=== PATIENT | female | born 1945 | race Caucasian/White ===

== ENCOUNTER 2017-05-22 09:54 | Observation (INO) ==
--- NOTE | 2017-05-22 10:26 | Emergency Department Note ---
Disposition Clinical Impression: Pre-syncope Pneumonia Qualifiers: Pneumonia type: due to unspecified organism Laterality: unspecified laterality Lung location: unspecified part of lung Qualified Code(s): J18.9 - Pneumonia, unspecified organism Disposition: Admitted As Inpatient Condition: Fair General Adult HPI - General Chief complaint: ED Syncope Stated complaint: medical assist/near syncope Time Seen by Provider: 05/22/17 09:56 Source: patient Limitations: no limitations Nursing Notes Reviewed: Yes Vital Signs Reviewed: Yes - History of Present Illness HPI Narrative: Patient was at the primary care physician office this morning and was called for medical cyst after she became diaphoretic and lightheaded and a did transport her here where blood sugar was 73. The patient does have diabetes. Did eat a sausage [place] morning at [employer] She denies any chest pain. The patient's symptoms are resolved. She has not had anything to eat or drink since the time of the episode. She denies any numbness or weakness of extremities, slurred speech, facial droop or confusion. She has had some dyspnea with exertion but is not short of breath now. Has been treated for upper respiratory infection with 2 rounds of antibiotics and also steroid medication Pain Scale: 0 - Related Data Home Medications Medication Instructions Recorded Confirmed Ascorbic Acid [Vitamin C] 1,000 mg PO DAILY 11/20/15 05/22/17 Aspirin Enteric Coated [Aspirin EC] 81 mg PO DAILY 11/20/15 05/22/17 Bee Pollen 1,000 mg PO BID 11/20/15 05/22/17 Calcium Carbonate/Vitamin D3 1 each PO BID 11/20/15 05/22/17 [Calcium 500-Vit D3 400 Tablet] Chromium Picolinate 200 mcg PO DAILY 11/20/15 05/22/17 Cinnamon Bark [Cinnamon] 500 mg PO DAILY 11/20/15 05/22/17 Insulin ASPART [Novolog Flexpen] 30 unit SQ TIDWM 11/20/15 05/22/17 Insulin Glargine,Hum.rec.anlog 42 unit SQ QAM 11/20/15 05/22/17 [Lantus Solostar] Insulin Glargine,Hum.rec.anlog 70 unit SQ HS 11/20/15 05/22/17 [Lantus Solostar] Lisinopril 20 mg PO HS 11/20/15 05/22/17 Lisinopril/Hydrochlorothiazide 1 tab PO QAM 11/20/15 05/22/17 [Lisinopril-Hctz 20-25 mg Tab] Multivitamin [Multi-Day Vitamins] 1 each PO DAILY 11/20/15 05/22/17 Niacin 500 mg PO DAILY 11/20/15 05/22/17 Welcome-3/Dha/Epa/Fish Oil [Fish Oil 500 mg PO BID 11/20/15 05/22/17 Dr 500 mg Softgel] Red Yeast Rice 600 mg PO BID 11/20/15 05/22/17 Vit D3-Vit K/Berberine/Hops 1 each PO DAILY 11/20/15 05/22/17 [Ostera Tablet] Vitamin E 1,000 unit PO DAILY 11/20/15 05/22/17 glipiZIDE [Glipizide] 10 mg PO BID 11/20/15 05/22/17 Rosuvastatin Calcium [Rosuvastatin 10 mg PO DAILY 03/04/17 05/22/17 Calcium] Fluticasone Propionate Nasal 2 spr NS DAILY 05/22/17 05/22/17 [Flonase] Fluticasone/Salmeterol [Advair Hfa 2 puff IH BID 05/22/17 05/22/17 115-21 Mcg Inhaler] Previous Rx's Medication Instructions Recorded Albuterol Sulfate [Albuterol 2 puff IH Q4HR #1 hfa.aer.ad 05/16/17 Inhaler] Allergies Allergy/AdvReac Type Severity Reaction Status Date / Time ezetimibe [From Zetia] Allergy Mild Muscle Pain Verified 03/04/17 10:29 liraglutide [From Victoza] Allergy Mild Abdominal Verified 03/04/17 10:29 Pain Olzjtea-Cwl-Qey Reductase Allergy Mild Muscle Pain Verified 03/04/17 10:29 Inhibitor [Statins] acetaminophen [From Vicodin] AdvReac Mild Vomiting Verified 03/04/17 10:29 alcohol AdvReac Mild Hypertensio Verified 03/04/17 10:29 n hydrocodone [From Vicodin] AdvReac Mild Vomiting Verified 03/04/17 10:29 Review of Systems: Constitutional: No fever Vision: No blurred vision ENT: + rhinorrhea Respiratory: + dry cough no hemoptysis Allergic: No allergies : No blood in urine GI: No blood in stool Hematologic: No bruising Dermatologic: No skin rash Musculoskeletal: No pain in the extremities Neuro: No numbness of the extremities Past Medical History - Past Medical History Medical history: Reports: diabetes, hypertension, liver disease, renal disease Psychiatric history: Reports: no psych history - Social History Smoking Status: Never smoker Smokeless Tobacco Status: No Alcohol use: Reports: none Drug use: Reports: none Physical Exam CONSTITUTIONAL: Alert and oriented X3, well-nourished, well appearing, in no apparent distress HEAD: Normocephalic; atraumatic. EYES: PERRL, no scleral icterus. NOSE: The nose is normal in appearance without rhinorrhea RESP: Normal chest excursion with respiration; breath sounds with minimal bilateral wheezing and bibasilar crackles, clear on apices CARD: Regular rhythm, without murmurs, rub or gallop ABD: Non-distended; non-tender, soft,without rigidity, rebound or guarding SKIN: Normal for age and race; warm and dry; no apparent lesions EXTREMITIES: Pulses are 2 plus and equal times 4 extremities, no peripheral edema or calf muscle pain. NEUROLOGICAL: Patient is alert and oriented times three. Cranial nerves III- XII are intact. Sensory and motor functions are intact. Strength is 5/5 for flexion and extension in all 4 extremities. Patellar DTRS are equal and intact. Finger to nose testing is equal and normal bilaterally. - General Limitations: no limitations General appearance: alert, in no apparent distress Course Vital Signs Temperature 98.1 F 05/22/17 09:58 Pulse Rate 69 05/22/17 09:58 Respiratory Rate 12 05/22/17 09:58 Blood Pressure 133/67 05/22/17 09:58 O2 Sat by Pulse Oximetry 92 05/22/17 09:58 Temperature 98.1 F 05/23/17 07:02 Pulse Rate 80 05/23/17 07:02 Respiratory Rate 16 05/23/17 07:39 Blood Pressure 123/51 05/23/17 07:02 O2 Sat by Pulse Oximetry 96 05/23/17 07:39 Oxygen Delivery Oxygen Delivery Nasal Cannula Medical Decision Making - MDM Narrative Medical decision making narrative: Patient will have further evaluation with labs including BNP as well as troponin because the patient's blood sugar was on the low end of normal but was still normal so it is difficult to with 100% certainty attribute the diaphoresis and lightheadedness to hypoglycemia and additionally, this did spontaneously resolve wihtout eating/intervention so this could also be from something like myocardial ischemia and the patient does have labs pending, I did review her EKG which shows normal sinus rhythm with a rate of 70 without acute ischemic change. At this point she is bright and alert and well appearance. A DuoNeb will be administered. 1027 I did review the patient's test results. The case was discussed with the hospitalist the patient will be admitted based on the hypoxemia and the fact that the patient did feel outpatient antibiotics. These were amoxicillin plus a unknown antibiotic from urgent care. The patient is also steroids as an outpatient. The hospitalist recommended Levaquin and I did write for Levaquin 750 mg IVPB. Patient will be admitted. 1338 - Medical Records Medical records reviewed: Yes I reviewed the patient's medical records. - Lab Data Lab results reviewed: Yes I reviewed the patient's lab results. Result diagrams: 05/23/17 05:26 05/23/17 05:26 Lab Results 05/22/17 05/22/17 05/22/17 Range/Units 10:39 10:39 10:39 WBC 13.5 H (4.3-11.1) K/mcL RBC 4.19 (3.82-4.97) M/mcL Hgb 13.7 (11.5-15.4) g/dL Hct 40.1 (35.3-44.9) % MCV 95.7 (83.0-100.0) fL MCH 32.7 (28.0-33.3) pg MCHC 34.2 (31.6-35.5) g/dL RDW 12.5 (11.5-14.5) % Plt Count 250 (140-400) K/mcL MPV 10.6 (9.4-12.4) fL Sodium 143 (136-145) mEq/L Potassium 3.7 (3.5-4.5) mEq/L Chloride 105 (98-109) mEq/L Carbon Dioxide 29 (19-29) mEq/L BUN 21 H (7-20) mg/dL Creatinine 0.89 (0.57-1.11) mg/dL Est GFR ( Amer) > 60 (> 60) Est GFR (Non-Af Amer) > 60 (> 60) BUN/Creatinine Ratio 24 (6-26) Glucose 85 (70-99) mg/dL Calculated Osmolality 298 (280-300) Calcium 9.3 (8.6-10.8) mg/dL Troponin I 0.02 (0-0.03) ng/mL B-Natriuretic Peptide (0-100) pg/mL 05/22/ Range/Units 10:39 WBC (4.3-11.1) K/mcL RBC (3.82-4.97) M/mcL Hgb (11.5-15.4) g/dL Hct (35.3-44.9) % MCV (83.0-100.0) fL MCH (28.0-33.3) pg MCHC (31.6-35.5) g/dL RDW (11.5-14.5) % Plt Count (140-400) K/mcL MPV (9.4-12.4) fL Sodium (136-145) mEq/L Potassium (3.5-4.5) mEq/L Chloride (98-109) mEq/L Carbon Dioxide (19-29) mEq/L BUN (7-20) mg/dL Creatinine (0.57-1.11) mg/dL Est GFR ( Amer) (> 60) Est GFR (Non-Af Amer) (> 60) BUN/Creatinine Ratio (6-26) Glucose (70-99) mg/dL Calculated Osmolality (280-300) Calcium (8.6-10.8) mg/dL Troponin I (0-0.03) ng/mL B-Natriuretic Peptide 19 (0-100) pg/mL - Radiology Data Radiology results reviewed: Yes I reviewed the patient's radiology results.
[2017-05-22] MEDS ORDERED: Ipratropium/Albuterol Neb 3 ML IH ONE (10:29)
[2017-05-22 10:52] LABS: Hematocrit 40.1 % (35.3-44.9); Hemoglobin 13.7 g/dL (11.5-15.4); Mean Corpuscular HGB Conc 34.2 g/dL (31.6-35.5); Mean Corpuscular Hemoglobin 32.7 pg (28.0-33.3); Mean Corpuscular Volume 95.7 fL (83.0-100.0); Mean Platelet Volume 10.6 fL (9.4-12.4); Platelet Count 250 K/mcL (140-400); Red Blood Count 4.19 M/mcL (3.82-4.97); Red Cell Distribution Width 12.5 % (11.5-14.5)
[2017-05-22 10:58] LABS: BUN/Creatinine Ratio 24 (6-26); Blood Urea Nitrogen 21 mg/dL (7-20); Calcium 9.3 mg/dL (8.6-10.8); Carbon Dioxide 29 mEq/L (19-29); Chloride 105 mEq/L (98-109); Glucose 85 mg/dL (70-99); Osmolality,Calculated 298 (280-300); Potassium 3.7 mEq/L (3.5-4.5); Sodium 143 mEq/L (136-145); eGFR For African Americans > 60 (> 60); eGFR For Non-African Americans > 60 (> 60)
[2017-05-22] MEDS ORDERED: Levofloxacin 750 MG/150 ML 750 MG/150 ML BAG IVPB ONE (13:29)
--- NOTE | 2017-05-22 16:16 | Electrocardiograph Report ---
[place] [id number] Test Date: 2017-05-22 Pat Name: Krys Johnson Department: 104 Room: 3B43 Gender: F Head [employer] Operator: BERNADINE : 1945 Requested By: Talib Snell Order Number: [id number] Reading MD: Sharon Palomares Measurements Intervals [place] Rate: 70 P: 21 AK: 159 QRS: -35 QRSD: 83 T: 43 QT: 383 QTc: 404 Interpretive Statements SINUS RHYTHM LEFT AXIS DEVIATION LOW QRS VOLTAGE IN PRECORDIAL LEADS Electronically Signed On 05-22-2017 16:14:48 EST by Sharon Palomares
[2017-05-22] MEDS ORDERED: Naloxone 0.4 MG/ML INJ IVP PRN (17:18)
[2017-05-22] MEDS ORDERED: *HR* Dextrose 50 % in Water (Syg) 50 ML SYRINGE IVP PRN (17:23)
[2017-05-22] MEDS ORDERED: D5% in Water 1,000 ML IVC PRN (17:23)
[2017-05-22] MEDS ORDERED: Dextrose Gel 15 GM PO PRN ×2 (17:23)
--- NOTE | 2017-05-22 17:33 | Internal Med History&Physical ---
Date of Encounter: 05/22/17 Time of Encounter: 17:31 Assessment and Plan (1) Bronchitis, acute, with bronchospasm Current visit: Yes Status: Acute (2) HTN (hypertension), benign Current visit: Yes Status: Chronic (3) DM2 (diabetes mellitus, type 2) Current visit: Yes Status: Chronic 71yo female with hx of DM2, HTN who presented with persistent bronchial congestion and near syncope without Loss of consciousness. Pt continues to have decreased BS with wheezes, will start IV steroids, Duonebs and Mucinex, supplemental oxygen, continue IV levaquin. Home meds reviewed and resumed as deemed appropriate. continue Accucheck with insulin coverage DVT prophylaxis Qualifiers: Diabetes mellitus complication status: without complication Qualified Code( s): E11.9 - Type 2 diabetes mellitus without complications Internal Medicine - H&P: HPI Chief complaint: Dyspnea and fatigue Admitted From: Home Plans for Post Hospital Care: Home History of present illness: Ms. Johnson is a 71 year old female with hx of DM2 on insulin, HTN, CKD who presented to the hospital after nearly passed out from generalised weakness at Dr Dennis's office. Pt reports that she has had chest congestion, dyspnea and cough for the last 2weeks without improvement. She adds that she was given some steroids and mucinex with abx iwhtout relief. She then went to her PCP office today for followup and she continued to feel dyspneic and fell like she was going to pass out. Pt then almost fell off the bench as she felt fainty. She was then sent to the ED. PT denies palpitations, fever, chills, chest or abdominal pain. Past Med Surg Social Fam HX - Past Medical History Medical history: diabetes, hypertension, liver disease, renal disease Psychiatric history: no psych history - Past Surgical History Surgical History: cholecystectomy - Social History Smoking Status: Never smoker Smokeless Tobacco Status: No Alcohol use: none Drug use: none - Family History Mother Living Status: Age at : 53 Cause of : Heart Attack Hx Family Cardiac Disorders: Yes Hx Family Respiratory Disorders: No Hx Family Cancer: No Hx Family GI Disorders: No Hx Family Genitourinary Disorders: No Hx Family Endocrine Disorder: Yes Father Living Status: Age at : 81 Cause of : Pneumonia Hx Family Cardiac Disorders: Yes Internal Medicine - H&P: Meds Ascorbic Acid [Vitamin C] 1,000 mg PO DAILY 11/20/15 [History] Aspirin Enteric Coated [Aspirin EC] 81 mg PO DAILY 11/20/15 [History] Bee Pollen 1,000 mg PO BID 11/20/15 [History] Calcium Carbonate/Vitamin D3 [Calcium 500-Vit D3 400 Tablet] 1 each PO BID 11/19 [History] Chromium Picolinate 200 mcg PO DAILY 11/20/15 [History] Cinnamon Bark [Cinnamon] 500 mg PO DAILY 11/20/15 [History] Insulin ASPART [Novolog Flexpen] 30 unit SQ TIDWM 11/20/15 [History] Insulin Glargine,Hum.rec.anlog [Lantus Solostar] 42 unit SQ QAM 11/20/15 [ History] Insulin Glargine,Hum.rec.anlog [Lantus Solostar] 70 unit SQ HS 11/20/15 [History ] Lisinopril 20 mg PO HS 11/20/15 [History] Lisinopril/Hydrochlorothiazide [Lisinopril-Hctz 20-25 mg Tab] 1 tab PO QAM 11/19 [History] Multivitamin [Multi-Day Vitamins] 1 each PO DAILY 11/20/15 [History] Niacin 500 mg PO DAILY 11/20/15 [History] [place]-3/Dha/Epa/Fish Oil [Fish Oil Dr 500 mg Softgel] 500 mg PO BID 11/20/15 [ History] Red Yeast Rice 600 mg PO BID 11/20/15 [History] Vit D3-Vit K/Berberine/Hops [Ostera Tablet] 1 each PO DAILY 11/20/15 [History] Vitamin E 1,000 unit PO DAILY 11/20/15 [History] glipiZIDE [Glipizide] 10 mg PO BID 11/20/15 [History] Rosuvastatin Calcium [Rosuvastatin Calcium] 10 mg PO DAILY 03/04/17 [History] Albuterol Sulfate [Albuterol Inhaler] 2 puff IH Q4HR #1 hfa.aer.ad 05/16/17 [Rx] Fluticasone Propionate Nasal [Flonase] 2 spr NS DAILY 05/22/17 [History] Fluticasone/Salmeterol [Advair Hfa 115-21 Mcg Inhaler] 2 puff IH BID 05/22/17 [ History] 3 Allergy/AdvReac Type Severity Reaction Status Date / Time ezetimibe [From Zetia] Allergy Mild Muscle Pain Verified 03/04/17 10:29 liraglutide [From Victoza] Allergy Mild Abdominal Verified 03/04/17 10:29 Pain Mtcgeyp-Lld-Ljn Reductase Allergy Mild Muscle Pain Verified 03/04/17 10:29 Inhibitor [Statins] acetaminophen [From Vicodin] AdvReac Mild Vomiting Verified 03/04/17 10:29 alcohol AdvReac Mild Hypertensio Verified 03/04/17 10:29 n hydrocodone [From Vicodin] AdvReac Mild Vomiting Verified 03/04/17 10:29 All Systems PM: A 10-system review of systems was performed and is negative for pertinent findings except as documented above in the HPI. - Constitutional Vitals: Temp Pulse Resp BP Pulse Ox 98.5 F 76 18 119/65 97 05/22/17 15:11 05/22/17 15:11 05/22/17 15:11 05/22/17 15:11 05/22/17 15:11 General appearance: Present: A&O X 3 - Head Head exam: Present: atraumatic, normocephalic - Eye Eye exam: Present: PERRL, conjuntiva pink, sclera anicteric Pupils: Present: PERRL - Neck Neck exam general surgery: Present: supple, trachea midline. Absent: lymphadenopathy - Respiratory Respiratory exam: Present: decreased breath sounds, wheezes. Absent: accessory muscle use, rales, rhonchi - Cardiovascular Cardiovascular exam: Present: RRR, +S1, +S2. Absent: diastolic murmur, gallop, rubs, systolic murmur - GI/Abdominal GI/Abdominal exam: Present: normal bowel sounds, soft, no peritoneal signs. Absent: distended, tenderness - Extremities Exam Extremities exam: Present: warm, radial pulses palpable and symmetrical. Absent : calf tenderness, cyanotic, pedal edema - Neurological Exam Neurological exam: Present: CN II-XII intact, oriented X3, no focal deficits. Absent: pronater drift, facial droop, speech deficit - Skin Skin exam: Present: dry, intact Internal Med - H&P Results - Labs CBC & Chem 7: 05/22/17 10:39 05/22/17 10:39
[2017-05-22] MEDS: Insulin LISPRO 300 UNITS/3 ML VIAL SQ SCH ×2 (18:08→20:57)
[2017-05-22] MEDS: MethylPREDNISolone 40 MG/ML VIAL IVP SCH ×2 (18:12→23:55)
[2017-05-22] MEDS: Ipratropium/Albuterol Neb 3 ML IH SCH ×3 (18:28→23:39)
[2017-05-22] MEDS: (Calcium Carbonate/Vitamin D3 [Calcium 500-Vit D3 400) PO SCH (20:53)
[2017-05-22] MEDS: Lisinopril 20 MG TABLET PO SCH (20:56)
[2017-05-22] MEDS: *HR* GlipiZIDE 5 MG TABLET PO SCH (20:57)
[2017-05-22] MEDS ORDERED: RED YEAST RICE 600 MG PO SCH (21:00)
[2017-05-22] MEDS ORDERED: BEE POLLEN PO SCH (21:00)
[2017-05-22] MEDS: Insulin DETEMIR 100 UNIT/ML X5UNITS SQ SCH (23:55)
[2017-05-23] MEDS: Ipratropium/Albuterol Neb 3 ML IH SCH ×3 (03:58→11:12)
[2017-05-23] MEDS: MethylPREDNISolone 40 MG/ML VIAL IVP SCH ×3 (05:28→17:03)
[2017-05-23 06:12] LABS: Basophils % 0.1 %; Hematocrit 37.5 % (35.3-44.9); Hemoglobin 12.9 g/dL (11.5-15.4); Immature Granulocytes % 0.4 % (0-4); Lymphocytes # 1.3 K/mcL (0.6-4.6); Mean Corpuscular HGB Conc 34.4 g/dL (31.6-35.5); Mean Corpuscular Hemoglobin 32.8 pg (28.0-33.3); Mean Corpuscular Volume 95.4 fL (83.0-100.0); Mean Platelet Volume 11.1 fL (9.4-12.4); Monocytes # 0.2 K/mcL (0.0-1.3); Monocytes % 1.5 %; Neutrophils # 8.3 K/mcL (1.6-8.9); Platelet Count 237 K/mcL (140-400); Red Blood Count 3.93 M/mcL (3.82-4.97); Red Cell Distribution Width 12.2 % (11.5-14.5)
[2017-05-23 06:22] LABS: BUN/Creatinine Ratio 19 (6-26); Blood Urea Nitrogen 19 mg/dL (7-20); Calcium 8.9 mg/dL (8.6-10.8); Carbon Dioxide 21 mEq/L (19-29); Chloride 104 mEq/L (98-109); Glucose 347 mg/dL (70-99); Magnesium 1.7 mg/dL (1.6-2.6); Osmolality,Calculated 296 (280-300); Phosphorous 3.2 mg/dL (2.3-4.7); Potassium 4.5 mEq/L (3.5-4.5); eGFR For African Americans > 60 (> 60); eGFR For Non-African Americans 55 (> 60)
[2017-05-23 06:23] LABS: Sodium 135 mEq/L (136-145)
[2017-05-23] MEDS: Budesonide/Formoterol 80/4.5 MDI IH SCH ×2 (08:45→21:55)
--- NOTE | 2017-05-23 08:51 | Internal Med Progress Note ---
Date of Encounter: 05/23/17 Time of Encounter: 08:47 - Assessment and plan (1) Bronchitis, acute, with bronchospasm Current Visit: Yes Status: Acute (2) HTN (hypertension), benign Current Visit: Yes Status: Chronic (3) DM2 (diabetes mellitus, type 2) Current Visit: Yes Status: Chronic Assessment and plan: PT STILL REPORTING COUGH WITH CONGESTION, WILL CONTINUE STEROID, NEBS AND MUCINEX WORSENING HYPERGLYCEMIA DUE TO STEROIDS, CONTINUE ACCUCHECK AND ISS ANITICIPATE DC IN 24-48HRS. Qualifiers: Diabetes mellitus complication status: without complication Qualified Code( s): E11.9 - Type 2 diabetes mellitus without complications - Subjective Interval history: reports still coughing and congested but seeing some mild improvement today. - Constitutional Vitals: Temp Pulse Resp BP Pulse Ox 98.1 F 80 16 123/51 96 05/23/17 07:02 05/23/17 07:02 05/23/17 07:39 05/23/17 07:02 05/23/17 07:39 General appearance: Present: A&O X 3 - Head Head exam: Present: atraumatic, normocephalic - Eye Eye exam: Present: PERRL, conjuntiva pink, sclera anicteric Pupils: Present: PERRL - Neck Neck exam general surgery: Present: supple, trachea midline. Absent: lymphadenopathy - Respiratory Respiratory exam: Present: decreased breath sounds, wheezes. Absent: accessory muscle use, rales, rhonchi - Cardiovascular Cardiovascular exam: Present: RRR, +S1, +S2. Absent: diastolic murmur, gallop, rubs, systolic murmur - GI/Abdominal GI/Abdominal exam: Present: normal bowel sounds, soft, no peritoneal signs. Absent: distended, tenderness - Extremities Exam Extremities exam: Present: warm, radial pulses palpable and symmetrical. Absent : calf tenderness, cyanotic, pedal edema - Neurological Exam Neurological exam: Present: CN II-XII intact, oriented X3, no focal deficits. Absent: pronater drift, facial droop, speech deficit - Skin Skin exam: Present: dry, intact Internal Medicine: Result - Labs CBC & Chem 7: 05/23/17 05:26 05/23/17 05:26 Labs: Short CBC 05/23/17 Range/Units 05:26 WBC 9.7 (4.3-11.1) K/mcL Hgb 12.9 (11.5-15.4) g/dL Hct 37.5 (35.3-44.9) % Plt Count 237 (140-400) K/mcL Neutrophils # 8.3 (1.6-8.9) K/mcL [facility] 05/23/17 05:26 Sodium 135 L D Potassium 4.5 Chloride 104 Carbon Dioxide 21 BUN 19 Creatinine 0.99 Glucose 347 H Calcium 8.9 Cardiac Enzymes 05/22/17 05/22/17 05/23/17 Range/Units 18:07 23:36 05:26 Troponin I 0.00 0.00 0.00 (0-0.03) ng/mL Consult Discharge Plan - Plan Referrals: Florin Dunn DO [Primary Care Provider] -
[2017-05-23] MEDS: Niacin (24 HR) 500 MG TAB.ER.24H PO SCH (08:55)
[2017-05-23] MEDS: Aspirin Enteric Coated 81 MG Tablet PO SCH (08:55)
[2017-05-23] MEDS: *HR* GlipiZIDE 5 MG TABLET PO SCH ×2 (08:55→21:28)
[2017-05-23] MEDS: Insulin LISPRO 300 UNITS/3 ML VIAL SQ SCH ×7 (08:56→21:29)
[2017-05-23] MEDS: Insulin DETEMIR 100 UNIT/ML X5UNITS SQ SCH ×2 (08:56→21:28)
[2017-05-23] MEDS: (Calcium Carbonate/Vitamin D3 [Calcium 500-Vit D3 400) PO SCH (08:57)
[2017-05-23] MEDS ORDERED: Levofloxacin 500 MG/100 ML 500 MG/100 ML BAG IVPB SCH (09:00)
[2017-05-23] MEDS: Fluticasone Propionate Nasal 50 MCG/SPRAY BOTTLE NS SCH (10:11)
[2017-05-23] MEDS: Levalbuterol Neb 1.25 MG/3 ML IH SCH ×2 (15:32→21:47)
[2017-05-23] MEDS: Lisinopril 20 MG TABLET PO SCH (21:28)
[2017-05-24] MEDS: Levalbuterol Neb 1.25 MG/3 ML IH SCH ×4 (04:03→20:55)
[2017-05-24] MEDS: MethylPREDNISolone 40 MG/ML VIAL IVP SCH (06:08)
[2017-05-24] MEDS: Budesonide/Formoterol 80/4.5 MDI IH SCH ×3 (06:40→20:54)
[2017-05-24 08:17] LABS: BUN/Creatinine Ratio 25 (6-26); Blood Urea Nitrogen 25 mg/dL (7-20); Calcium 9.1 mg/dL (8.6-10.8); Carbon Dioxide 22 mEq/L (19-29); Chloride 104 mEq/L (98-109); Glucose 209 mg/dL (70-99); Osmolality,Calculated 291 (280-300); Potassium 4.3 mEq/L (3.5-4.5); Sodium 135 mEq/L (136-145); eGFR For African Americans > 60 (> 60); eGFR For Non-African Americans 55 (> 60)
[2017-05-24] MEDS: *HR* GlipiZIDE 5 MG TABLET PO SCH ×2 (08:39→21:42)
[2017-05-24] MEDS: Cholecalciferol (D-3) 1,000 UNIT TABLET PO SCH (08:39)
[2017-05-24] MEDS: Aspirin Enteric Coated 81 MG Tablet PO SCH (08:39)
[2017-05-24] MEDS: predniSONE 20 MG TABLET PO SCH (08:39)
[2017-05-24] MEDS: Niacin (24 HR) 500 MG TAB.ER.24H PO SCH (08:40)
[2017-05-24] MEDS: Insulin DETEMIR 100 UNIT/ML X5UNITS SQ SCH ×2 (08:40→21:40)
[2017-05-24] MEDS: Fluticasone Propionate Nasal 50 MCG/SPRAY BOTTLE NS SCH (08:40)
[2017-05-24] MEDS: levoFLOXacin 500 MG TABLET PO SCH (08:40)
[2017-05-24] MEDS: Insulin LISPRO 300 UNITS/3 ML VIAL SQ SCH ×7 (08:41→21:41)
--- NOTE | 2017-05-24 10:41 | Internal Med Progress Note ---
Date of Encounter: 05/24/17 Time of Encounter: 10:37 - Assessment and plan (1) Bronchitis, acute, with bronchospasm Current Visit: Yes Status: Acute Assessment and plan: Continue current care Change solumedrol to prednisone po Change levaquin to po Continue duonebs (2) HTN (hypertension), benign Current Visit: Yes Status: Chronic Assessment and plan: Controlled, continue current care (3) DM2 (diabetes mellitus, type 2) Current Visit: Yes Status: Chronic Assessment and plan: Continue current meds, adjust insulin prn Poor control, due to steroids Check A1C Qualifiers: Diabetes mellitus complication status: without complication Qualified Code( s): E11.9 - Type 2 diabetes mellitus without complications - Subjective Interval history: Seen and evaluated at bedside being managed for Bronchitis She has a PMH of DM, HTN, CKD III No new complains Feeling slightly improved - Constitutional Vitals: Temp Pulse Resp BP Pulse Ox 97.9 F 66 18 114/64 96 05/24/17 07:57 05/24/17 07:57 05/24/17 08:08 05/24/17 07:57 05/24/17 09:53 General appearance: Present: A&O X 3, pleasant, no acute distress, obese - Head Head exam: Present: atraumatic, normocephalic - Eye Eye exam: Present: PERRL, conjuntiva pink, sclera anicteric Pupils: Present: PERRL - Neck Neck exam general surgery: Present: supple, trachea midline. Absent: lymphadenopathy - Respiratory Respiratory exam: Present: CTAB. Absent: accessory muscle use, rales, rhonchi, wheezes - Cardiovascular Cardiovascular exam: Present: RRR, +S1, +S2. Absent: diastolic murmur, gallop, rubs, systolic murmur - GI/Abdominal GI/Abdominal exam: Present: normal bowel sounds, soft, no peritoneal signs. Absent: distended, tenderness - Extremities Exam Extremities exam: Present: warm, radial pulses palpable and symmetrical. Absent : calf tenderness, cyanotic, pedal edema - Neurological Exam Neurological exam: Present: alert, CN II-XII intact, oriented X3, no focal deficits. Absent: pronater drift, facial droop, speech deficit - Skin Skin exam: Present: dry, intact Internal Medicine: Result - Labs CBC & Chem 7: 05/23/17 05:26 05/24/17 07:07 Labs: [facility] 05/24/17 07:07 Sodium 135 L Potassium 4.3 Chloride 104 Carbon Dioxide 22 BUN 25 H Creatinine 0.99 Glucose 209 H Calcium 9.1 Consult Discharge Plan - Plan Referrals: Florin Dunn DO [Primary Care Provider] -
[2017-05-24] MEDS ORDERED: *HR* LORazepam 0.5 MG TABLET PO PRN (21:23)
[2017-05-24] MEDS: Sennosides/Docusate Sodium TABLET PO SCH (21:42)
[2017-05-24] MEDS: Lisinopril 20 MG TABLET PO SCH (21:42)
[2017-05-25] MEDS: Levalbuterol Neb 1.25 MG/3 ML IH SCH ×2 (03:47→10:22)
[2017-05-25 05:19] LABS: Hemoglobin A1C 7.6 %
[2017-05-25 05:26] LABS: BUN/Creatinine Ratio 24 (6-26); Blood Urea Nitrogen 24 mg/dL (7-20); Calcium 9.1 mg/dL (8.6-10.8); Carbon Dioxide 21 mEq/L (19-29); Chloride 108 mEq/L (98-109); Glucose 131 mg/dL (70-99); Osmolality,Calculated 296 (280-300); Sodium 140 mEq/L (136-145); eGFR For African Americans > 60 (> 60); eGFR For Non-African Americans 54 (> 60)
[2017-05-25] MEDS: levoFLOXacin 500 MG TABLET PO SCH (08:32)
[2017-05-25] MEDS: Insulin LISPRO 300 UNITS/3 ML VIAL SQ SCH ×4 (08:32→12:27)
[2017-05-25] MEDS: Sennosides/Docusate Sodium TABLET PO SCH (08:33)
[2017-05-25] MEDS: Niacin (24 HR) 500 MG TAB.ER.24H PO SCH (08:33)
[2017-05-25] MEDS: *HR* GlipiZIDE 5 MG TABLET PO SCH (08:33)
[2017-05-25] MEDS: Aspirin Enteric Coated 81 MG Tablet PO SCH (08:33)
[2017-05-25] MEDS: Cholecalciferol (D-3) 1,000 UNIT TABLET PO SCH (08:33)
[2017-05-25] MEDS: predniSONE 20 MG TABLET PO SCH (08:33)
[2017-05-25] MEDS: Fluticasone Propionate Nasal 50 MCG/SPRAY BOTTLE NS SCH (08:33)
[2017-05-25] MEDS: Insulin DETEMIR 100 UNIT/ML X5UNITS SQ SCH (08:38)
[2017-05-25] MEDS: Budesonide/Formoterol 80/4.5 MDI IH SCH (10:22)
[2017-05-25 10:31] VITALS: BP 128/65
--- NOTE | 2017-05-25 12:05 | Internal Med Progress Note ---
Date of Encounter: 05/25/17 - Assessment and plan (1) Bronchitis, acute, with bronchospasm Current Visit: Yes Status: Acute Assessment and plan: Continue current care (2) HTN (hypertension), benign Current Visit: Yes Status: Chronic (3) DM2 (diabetes mellitus, type 2) Current Visit: Yes Status: Chronic Qualifiers: Diabetes mellitus complication status: without complication Qualified Code( s): E11.9 - Type 2 diabetes mellitus without complications - Subjective Interval history: Seen and evaluated at bedside being managed for Bronchitis She has a PMH of DM, HTN, CKD III No new complains Feeling slightly improved - Constitutional Vitals: Temp Pulse Resp BP Pulse Ox 98.2 F 73 18 128/65 98 05/25/17 10:30 05/25/17 10:30 05/25/17 10:30 05/25/17 10:30 05/25/17 10:30 General appearance: Present: A&O X 3, pleasant, no acute distress, obese - Head Head exam: Present: atraumatic, normocephalic - Eye Eye exam: Present: PERRL, conjuntiva pink, sclera anicteric Pupils: Present: PERRL - Neck Neck exam general surgery: Present: supple, trachea midline. Absent: lymphadenopathy - Respiratory Respiratory exam: Present: CTAB. Absent: accessory muscle use, rales, rhonchi, wheezes - Cardiovascular Cardiovascular exam: Present: RRR, +S1, +S2. Absent: diastolic murmur, gallop, rubs, systolic murmur - GI/Abdominal GI/Abdominal exam: Present: normal bowel sounds, soft, no peritoneal signs. Absent: distended, tenderness - Extremities Exam Extremities exam: Present: warm, radial pulses palpable and symmetrical. Absent : calf tenderness, cyanotic, pedal edema - Neurological Exam Neurological exam: Present: alert, CN II-XII intact, oriented X3, no focal deficits. Absent: pronater drift, facial droop, speech deficit - Skin Skin exam: Present: dry, intact Internal Medicine: Result - Labs CBC & Chem 7: 05/23/17 05:26 05/25/17 04:26 Labs: BMP 05/25/17 04:26 Sodium 140 Potassium 4.0 Chloride 108 Carbon Dioxide 21 BUN 24 H Creatinine 1.01 Glucose 131 H Calcium 9.1 Consult Discharge Plan - Plan Referrals: Florin Dunn DO [Primary Care Provider] -
--- NOTE | 2017-05-25 13:26 | Discharge Summary ---
Date of Encounter: 05/25/17 Time of Encounter: 13:24 - Discharge Diagnosis (1) Bronchitis, acute, with bronchospasm Priority: Primary Status: Acute (2) HTN (hypertension), benign Priority: Secondary Status: Chronic (3) DM2 (diabetes mellitus, type 2) Priority: Secondary Status: Chronic Qualifiers: Diabetes mellitus complication status: without complication Qualified Code( s): E11.9 - Type 2 diabetes mellitus without complications - Discharge Medications Prescriptions: Benzonatate [Tessalon] 100 mg PO TID #15 capsule levoFLOXacin [Levaquin] 500 mg PO DAILY #4 tablet predniSONE [PredniSONE] 40 mg PO DAILY #6 tablet Home Medications: Ascorbic Acid [Vitamin C] 1,000 mg PO DAILY 11/20/15 [History] Aspirin Enteric Coated [Aspirin EC] 81 mg PO DAILY 11/20/15 [History] Bee Pollen 1,000 mg PO BID 11/20/15 [History] Calcium Carbonate/Vitamin D3 [Calcium 500-Vit D3 400 Tablet] 1 each PO BID 11/19 [History] Chromium Picolinate 200 mcg PO DAILY 11/20/15 [History] Cinnamon Bark [Cinnamon] 500 mg PO DAILY 11/20/15 [History] Insulin ASPART [Novolog Flexpen] 30 unit SQ TIDWM 11/20/15 [History] Insulin Glargine,Hum.rec.anlog [Lantus Solostar] 42 unit SQ QAM 11/20/15 [ History] Insulin Glargine,Hum.rec.anlog [Lantus Solostar] 70 unit SQ HS 11/20/15 [History ] Lisinopril 20 mg PO HS 11/20/15 [History] Lisinopril/Hydrochlorothiazide [Lisinopril-Hctz 20-25 mg Tab] 1 tab PO QAM 11/19 [History] Multivitamin [Multi-Day Vitamins] 1 each PO DAILY 11/20/15 [History] Niacin 500 mg PO DAILY 11/20/15 [History] [place]-3/Dha/Epa/Fish Oil [Fish Oil Dr 500 mg Softgel] 500 mg PO BID 11/20/15 [ History] Red Yeast Rice 600 mg PO BID 11/20/15 [History] Vit D3-Vit K/[place]/Hops [Ostera Tablet] 1 each PO DAILY 11/20/15 [History] Vitamin E 1,000 unit PO DAILY 11/20/15 [History] glipiZIDE [Glipizide] 10 mg PO BID 11/20/15 [History] Rosuvastatin Calcium 10 mg PO DAILY 03/04/17 [History] Albuterol Sulfate [Albuterol Inhaler] 2 puff IH Q4HR #1 hfa.aer.ad 05/16/17 [Rx] Fluticasone Propionate Nasal [Flonase] 2 spr NS DAILY 05/22/17 [History] Fluticasone/Salmeterol [Advair Hfa 115-21 Mcg Inhaler] 2 puff IH BID 05/22/17 [ History] Benzonatate [Tessalon] 100 mg PO TID #15 capsule 05/25/17 [Rx] levoFLOXacin [Levaquin] 500 mg PO DAILY #4 tablet 05/25/17 [Rx] predniSONE [PredniSONE] 40 mg PO DAILY #6 tablet 05/25/17 [Rx] Allergies/Adverse Reactions: 3 Allergy/AdvReac Type Severity Reaction Status Date / Time ezetimibe [From Zetia] Allergy Mild Muscle Pain Verified 03/04/17 10:29 liraglutide [From Victoza] Allergy Mild Abdominal Verified 03/04/17 10:29 Pain Aqngiss-Cnv-Hgv Reductase Allergy Mild Muscle Pain Verified 03/04/17 10:29 Inhibitor [Statins] acetaminophen [From Vicodin] AdvReac Mild Vomiting Verified 03/04/17 10:29 alcohol AdvReac Mild Hypertensio Verified 03/04/17 10:29 n hydrocodone [From Vicodin] AdvReac Mild Vomiting Verified 03/04/17 10:29 Date of admission: 05/22/17 13:47 Primary care physician: Florin Dunn DO Discharging clinician: Alexis Kohler Anticipated date of discharge: 05/25/17 - Patient Status Disposition: Home, Self-Care Condition: Good Functional capacity at discharge: independent ambulation Overall status at discharge: patient is back to baseline - Discharge Instructions Follow Up With: Florin Dunn DO [Primary Care Provider] - - Diet and Activity Activity: resume usual activities as tolerated Diet: diabetic diet, low fat, low cholesterol, low salt diet Interval History: See below Hospital course: Ms. Johnson is a 71 year old female She was admitted for management of acute bronchitis She has made significant improvement after a course of steroids, duonebs and antibiotics She is seen and evaluated this morning, feels great and no new complains Stable to go home to complete 4 more days of levaquin and prednisone All questions answered, follow up with PCP - Time Spent with Patient Total time spent providing and/or coordinating discharge services: Less than 30 minutes - Constitutional Vitals: Temp Pulse Resp BP Pulse Ox 98.2 F 73 18 128/65 98 05/25/17 10:30 05/25/17 10:30 05/25/17 10:30 05/25/17 10:30 05/25/17 10:30 General appearance: Present: A&O X 3, pleasant, no acute distress, obese - Head Head exam: Present: atraumatic, normocephalic - Eye Eye exam: Present: PERRL, conjuntiva pink, sclera anicteric Pupils: Present: PERRL - Neck Neck exam general surgery: Present: supple, trachea midline. Absent: lymphadenopathy - Respiratory Respiratory exam: Present: CTAB. Absent: accessory muscle use, rales, rhonchi, wheezes - Cardiovascular Cardiovascular exam: Present: RRR, +S1, +S2. Absent: diastolic murmur, gallop, rubs, systolic murmur - GI/Abdominal GI/Abdominal exam: Present: normal bowel sounds, soft, no peritoneal signs. Absent: distended, tenderness - Extremities Exam Extremities exam: Present: warm, radial pulses palpable and symmetrical. Absent : calf tenderness, cyanotic, pedal edema - Neurological Exam Neurological exam: Present: alert, CN II-XII intact, oriented X3, no focal deficits. Absent: pronater drift, facial droop, speech deficit - Skin Skin exam: Present: dry, intact
== END 2017-05-25 14:08 | disposition home or self-care (01) ==
LOC: EMEROO 09:54 → 3BNU 09:54 → SUATTDRO 13:47 → 3BNU 14:19
PROVIDERS: ADMIT Family Medicine; ATTEND Internal Medicine

== ENCOUNTER 2018-11-13 17:34 | Observation (INO) ==
[2018-11-13 18:24] LABS: White Blood Count 8.7 K/mcL (4.3-11.1)
[2018-11-13 18:25] LABS: Basophils % 0.5 %; Eosinophils # 0.2 K/mcL (0.0-0.6); Eosinophils % 2.3 %; Hematocrit 36.5 % (35.3-44.9); Hemoglobin 12.9 g/dL (11.5-15.4); Immature Granulocytes % 0.2 % (0-4); Lymphocytes # 2.9 K/mcL (0.6-4.6); Lymphocytes % 32.9 %; Mean Corpuscular HGB Conc 35.3 g/dL (31.6-35.5); Mean Corpuscular Volume 93.4 fL (83.0-100.0); Mean Platelet Volume 11.2 fL (9.4-12.4); Monocytes # 0.9 K/mcL (0.0-1.3); Monocytes % 10.4 %; Neutrophils # 4.7 K/mcL (1.6-8.9); Platelet Count 222 K/mcL (140-400); Red Blood Count 3.91 M/mcL (3.82-4.97); Red Cell Distribution Width 12.5 % (11.5-14.5); Segmented Neutrophils % 53.7 %
[2018-11-13 18:45] LABS: BUN/Creatinine Ratio 23 (6-26); Blood Urea Nitrogen 18 mg/dL (8-23); Calcium 10.2 mg/dL (8.6-10.3); Carbon Dioxide 24 mEq/L (23-29); Chloride 101 mEq/L (98-107); Glucose 150 mg/dL (70-105); Osmolality,Calculated 285 (280-300); Potassium 3.8 mEq/L (3.5-5.1); Sodium 135 mEq/L (136-145); eGFR For African Americans > 60 (> 60); eGFR For Non-African Americans > 60 (> 60)
--- NOTE | 2018-11-13 20:11 | Emergency Department Note ---
Disposition Clinical Impression: Abdominal pain Qualifiers: Abdominal location: left lower quadrant Qualified Code(s): R10.32 - Left lower quadrant pain Disposition: Still a Patient Referrals: Florin Dunn DO [Primary Care Provider] - Forms: ED Satisfaction Letter, Work/School Release Time of Disposition: 22:51 General Adult HPI - General Chief complaint: ED Abdominal Pain Stated complaint: abd pain Time Seen by Provider: 11/13/18 19:55 - History of Present Illness HPI Narrative: Mrs. Johnson is a 72-year-old female with recent cardiac stent discharged on 11/09/18 complaining of severe left lower quadrant abdominal pain onset at 1300 this afternoon. She reports that she had her normal breakfast did not have anything to eat for lunch. Started noticing constant severe pain that caused her to cry per family member. The pain is described as achy 10 out of 10. She called her PCPs office who scheduled her for CT scan of the abdomen and pelvis. She was getting her CT of the abdomen and pelvis when she became nauseated and had 2 episodes of nonbloody emesis. Pain Scale: 10 - Related Data Home Medications Medication Instructions Recorded Confirmed Insulin ASPART [Novolog Flexpen] 20 unit SQ TIDWM 11/20/15 11/09/18 Insulin Glargine,Hum.rec.anlog 42 unit SQ QAM 11/20/15 11/09/18 [Lantus Solostar] Insulin Glargine,Hum.rec.anlog 76 unit SQ HS 11/20/15 11/09/18 [Lantus Solostar] Niacin 500 mg PO QAM 11/20/15 11/09/18 glipiZIDE [Glipizide] 10 mg PO BID 11/20/15 11/09/18 Ascorbate Calcium [Vitamin C] 1,000 mg PO QAM 11/09/18 11/09/18 Aspirin [Adult Aspirin Regimen] 81 mg PO QAM 11/09/18 11/09/18 Calcium Carbonate/Vitamin D3 1 tab PO BID 11/09/18 11/09/18 [Calcium 600 + Vit D Tablet] Cholecalciferol (Vitamin D3) 2,000 unit PO QAM 11/09/18 11/09/18 [Vitamin D3] Cinnamon Bark [Cinnamon] 1,000 mg PO BID 11/09/18 11/09/18 Cyanocobalamin (Vitamin B-12) 1,000 mcg PO QAM 11/09/18 11/09/18 [Vitamin B-12] Lisinopril [Zestril] 10 mg PO HS 11/09/18 11/09/18 Lisinopril/Hydrochlorothiazide 1 tab PO QAM 11/09/18 11/09/18 [Zestoretic 20-25 mg Tablet] Multivitamin [One Daily Essential] 1 tab PO QAM 11/09/18 11/09/18 [place]-3/Dha/Epa/Fish Oil [Fish Oil 1 cap PO DAILY 11/09/18 11/09/18 1,000 mg Softgel] Rosuvastatin Calcium 20 mg PO QAM 11/09/18 11/09/18 Saline Nasal [place] [[place] Nasal 2 spray NS DAILY PRN 11/09/18 11/09/18 [place]] Vitamin E 400 unit PO QAM 11/09/18 11/09/18 Previous Rx's Medication Instructions Recorded Metoprolol [Lopressor] 12.5 mg PO BID #60 tablet 11/10/18 Nitroglycerin 0.4 mg SL Q5MPRN PRN #20 tab.subl 11/10/18 Ticagrelor [Brilinta] 90 mg PO BID #60 tablet 11/10/18 Allergies Allergy/AdvReac Type Severity Reaction Status Date / Time ezetimibe [From Zetia] Allergy Mild Muscle Pain Verified 11/13/18 17:37 liraglutide [From Victoza] Allergy Mild Abdominal Verified 11/13/18 17:37 Pain Vdzuuco-Boa-Xci Reductase Allergy Mild Muscle Pain Verified 11/13/18 17:37 Inhibitor [Statins] alcohol AdvReac Mild Hypertensio Verified 11/13/18 17:37 n hydrocodone [From Vicodin] AdvReac Mild Vomiting Verified 11/13/18 17:37 Constitutional: Denies: fever, chills, weakness Eyes: Denies: eye pain, eye discharge, vision change ENT ED: Denies: ear pain, congestion, dysphagia Cardiovascular: Denies: chest pain, palpitations, dyspnea on exertion Respiratory: Denies: cough, dyspnea, wheezes Gastrointestinal: Reports: abdominal pain (left lower quadrant), nausea, vomiting Genitourinary: Denies: urgency, dysuria, frequency Musculoskeletal: Denies: back pain, neck pain Integumentary: Denies: rash, abrasion, lesions Neurological: Denies: headache, weakness, numbness Past Medical History - Past Medical History Medical history: Reports: diabetes, hypertension, liver disease, renal disease Surgical history: Reports: cholecystectomy Psychiatric history: Reports: no psych history 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 Johnson is a 72-year-old female who appears mildly anxious. She also appears uncomfortable and complaining of pain that is rated as 10. Her vitals are stable her belly is soft and left lower quadrant is tender upon deep palpation, there is no rigidity or guarding. Course Vital Signs Temperature 98.4 F 11/13/18 17:37 Pulse Rate 75 11/13/18 17:37 Respiratory Rate 18 11/13/18 17:37 Blood Pressure 166/74 11/13/18 17:37 O2 Sat by Pulse Oximetry 97 11/13/18 17:37 Temperature 98.4 F 11/13/18 17:37 Pulse Rate 75 11/13/18 17:37 Respiratory Rate 18 11/13/18 17:37 Blood Pressure 166/74 11/13/18 17:37 O2 Sat by Pulse Oximetry 97 11/13/18 17:37 Oxygen Delivery Oxygen Delivery Room Air Medical Decision Making - Lab Data Result diagrams: 11/13/18 18:11 11/13/18 18:11 Lab Results 11/13/18 11/13/18 Range/Units 18:11 18:11 WBC 8.7 (4.3-11.1) K/mcL RBC 3.91 (3.82-4.97) M/mcL Hgb 12.9 (11.5-15.4) g/dL Hct 36.5 (35.3-44.9) % MCV 93.4 (83.0-100.0) fL MCH 33.0 (28.0-33.3) pg MCHC 35.3 (31.6-35.5) g/dL RDW 12.5 (11.5-14.5) % Plt Count 222 (140-400) K/mcL MPV 11.2 (9.4-12.4) fL Immature Gran % 0.2 (0-4) % Seg Neutrophils % 53.7 % Lymphocytes % 32.9 % Monocytes % 10.4 % Eosinophils % 2.3 % Basophils % 0.5 % Neutrophils # 4.7 (1.6-8.9) K/mcL Lymphocytes # 2.9 (0.6-4.6) K/mcL Monocytes # 0.9 (0.0-1.3) K/mcL Eosinophils # 0.2 (0.0-0.6) K/mcL Basophils # 0.0 (0.0-0.2) K/mcL Sodium 135 L (136-145) mEq/L Potassium 3.8 (3.5-5.1) mEq/L Chloride 101 (98-107) mEq/L Carbon Dioxide 24 (23-29) mEq/L BUN 18 (8-23) mg/dL Creatinine 0.79 (0.60-1.20) mg/dL Est GFR ( Amer) > 60 (> 60) Est GFR (Non-Af Amer) > 60 (> 60) BUN/Creatinine Ratio 23 (6-26) Glucose 150 H (70-105) mg/dL Calculated Osmolality 285 (280-300) Calcium 10.2 (8.6-10.3) mg/dL
[2018-11-13] MEDS ORDERED: *HR* FentaNYL (PF) 100 MCG/2 ML VIAL EP ONE ×2 (20:26→22:50)
[2018-11-13] MEDS ORDERED: Ondansetron 4 MG/2 ML VIAL IM ONE (20:27)
--- NOTE | 2018-11-13 21:02 | Emergency Department Note ---
Disposition Clinical Impression: Abdominal pain Qualifiers: Abdominal location: left lower quadrant Qualified Code(s): R10.32 - Left lower quadrant pain Disposition: Still a Patient Referrals: Florin Dunn DO [Primary Care Provider] - Forms: ED Satisfaction Letter, Work/School Release Time of Disposition: 22:50 General Adult HPI - General Chief complaint: ED Abdominal Pain Stated complaint: abd pain Time Seen by Provider: 11/13/18 19:55 - History of Present Illness Pain Scale: 10 - Related Data Home Medications Medication Instructions Recorded Confirmed Insulin ASPART [Novolog Flexpen] 20 unit SQ TIDWM 11/20/15 11/09/18 Insulin Glargine,Hum.rec.anlog 42 unit SQ QAM 11/20/15 11/09/18 [Lantus Solostar] Insulin Glargine,Hum.rec.anlog 76 unit SQ 11/20/15 11/09/18 [Lantus Solostar] Niacin 500 mg PO QAM 11/20/15 11/09/18 glipiZIDE [Glipizide] 10 mg PO BID 11/20/15 11/09/18 Ascorbate Calcium [Vitamin C] 1,000 mg PO QAM 11/09/18 11/09/18 Aspirin [Adult Aspirin Regimen] 81 mg PO QAM 11/09/18 11/09/18 Calcium Carbonate/Vitamin D3 1 tab PO BID 11/09/18 11/09/18 [Calcium 600 + Vit D Tablet] Cholecalciferol (Vitamin D3) 2,000 unit PO QAM 11/09/18 11/09/18 [Vitamin D3] Cinnamon Bark [Cinnamon] 1,000 mg PO BID 11/09/18 11/09/18 Cyanocobalamin (Vitamin B-12) 1,000 mcg PO QAM 11/09/18 11/09/18 [Vitamin B-12] Lisinopril [Zestril] 10 mg PO HS 11/09/18 11/09/18 Lisinopril/Hydrochlorothiazide 1 tab PO QAM 11/09/18 11/09/18 [Zestoretic 20-25 mg Tablet] Multivitamin [One Daily Essential] 1 tab PO QAM 11/09/18 11/09/18 [place]-3/Dha/Epa/Fish Oil [Fish Oil 1 cap PO DAILY 11/09/18 11/09/18 1,000 mg Softgel] Rosuvastatin Calcium 20 mg PO QAM 11/09/18 11/09/18 Saline Nasal [place] [[place] Nasal 2 spray NS DAILY PRN 11/09/18 11/09/18 [place]] Vitamin E 400 unit PO QAM 11/09/18 11/09/18 Previous Rx's Medication Instructions Recorded Metoprolol [Lopressor] 12.5 mg PO BID #60 tablet 11/10/18 Nitroglycerin 0.4 mg SL Q5MPRN PRN #20 tab.subl 11/10/18 Ticagrelor [Brilinta] 90 mg PO BID #60 tablet 11/10/18 Allergies Allergy/AdvReac Type Severity Reaction Status Date / Time ezetimibe [From Zetia] Allergy Mild Muscle Pain Verified 11/13/18 17:37 liraglutide [From Victoza] Allergy Mild Abdominal Verified 11/13/18 17:37 Pain Scqsaqt-Ccx-Nom Reductase Allergy Mild Muscle Pain Verified 11/13/18 17:37 Inhibitor [Statins] alcohol AdvReac Mild Hypertensio Verified 11/13/18 17:37 n hydrocodone [From Vicodin] AdvReac Mild Vomiting Verified 11/13/18 17:37 Past Medical History - Past Medical History Medical history: Reports: diabetes, hypertension, liver disease, renal disease Surgical history: Reports: cholecystectomy Psychiatric history: Reports: no psych history 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 FORM [employer]TER [employer] history - Social History Smoking Status: Never smoker Smokeless Tobacco Status: No Alcohol use: Reports: none Drug use: Reports: none Course Vital Signs Temperature 98.4 F 11/13/18 17:37 Pulse Rate 75 11/13/18 17:37 Respiratory Rate 18 11/13/18 17:37 Blood Pressure 166/74 11/13/18 17:37 O2 Sat by Pulse Oximetry 97 11/13/18 17:37 Temperature 98.4 F 11/13/18 17:37 Pulse Rate 75 11/13/18 17:37 Respiratory Rate 18 11/13/18 17:37 Blood Pressure 166/74 11/13/18 17:37 O2 Sat by Pulse Oximetry 97 11/13/18 17:37 Oxygen Delivery Oxygen Delivery Room Air Medical Decision Making - Lab Data Result diagrams: 11/13/18 18:11 11/13/18 18:11 Lab Results 11/13/18 11/13/18 Range/Units 18:11 18:11 WBC 8.7 (4.3-11.1) K/mcL RBC 3.91 (3.82-4.97) M/mcL Hgb 12.9 (11.5-15.4) g/dL Hct 36.5 (35.3-44.9) % MCV 93.4 (83.0-100.0) fL MCH 33.0 (28.0-33.3) pg MCHC 35.3 (31.6-35.5) g/dL RDW 12.5 (11.5-14.5) % Plt Count 222 (140-400) K/mcL MPV 11.2 (9.4-12.4) fL Immature Gran % 0.2 (0-4) % Seg Neutrophils % 53.7 % Lymphocytes % 32.9 % Monocytes % 10.4 % Eosinophils % 2.3 % Basophils % 0.5 % Neutrophils # 4.7 (1.6-8.9) K/mcL Lymphocytes # 2.9 (0.6-4.6) K/mcL Monocytes # 0.9 (0.0-1.3) K/mcL Eosinophils # 0.2 (0.0-0.6) K/mcL Basophils # 0.0 (0.0-0.2) K/mcL Sodium 135 L (136-145) mEq/L Potassium 3.8 (3.5-5.1) mEq/L Chloride 101 (98-107) mEq/L Carbon Dioxide 24 (23-29) mEq/L BUN 18 (8-23) mg/dL Creatinine 0.79 (0.60-1.20) mg/dL Est GFR ( Amer) > 60 (> 60) Est GFR (Non-Af Amer) > 60 (> 60) BUN/Creatinine Ratio 23 (6-26) Glucose 150 H (70-105) mg/dL Calculated Osmolality 285 (280-300) Calcium 10.2 (8.6-10.3) mg/dL Attestation Statement - Attestation Attestation: I saw and evaluated the patient and and reviewed the resident's note/PA note/INSPECTOR EYEGLASS note, and I agree with the findings and plan. I personally supervised and was present for the tinajero/critical portions of any procedures. The medical decision- making was reviewed with the EXAMINATION GRADER/PA/Advanced Practice Nurse/Resident Physician. I agree with the documented findings, disposition and treatment plan as described except to the extent set forth below. Patient has abdominal pain which is left lower quadrant and on exam she does have moderate amount of pain but soft without rigidity, rebound, guarding. Nontender elsewhere. She was over to get a CT scan to drink the contrast the pain got worse they brought her here however this time pain is much better controlled so we will get her CT scan and results are pending. She is bright and alert and in no distress. Nontoxic in appearance. [id number]
[2018-11-13] MEDS ORDERED: *HR* Ticagrelor 90 MG TABLET PO ONE (23:44)
--- NOTE | 2018-11-14 00:45 | Emergency Department Note ---
Disposition Clinical Impression: Hemorrhagic cyst of left ovary, Intractable abdominal pain Abdominal pain Qualifiers: Abdominal location: left lower quadrant Qualified Code(s): R10.32 - Left lower quadrant pain Disposition: Admitted As Inpatient Condition: Fair Referrals: Florin Dunn DO [Primary Care Provider] - Forms: ED Satisfaction Letter, Work/School Release Time of Disposition: 02:53 General Adult HPI - General Chief complaint: ED Abdominal Pain Stated complaint: abd pain Time Seen by Provider: 11/13/18 19:55 - History of Present Illness Pain Scale: 10 - Related Data Home Medications Medication Instructions Recorded Confirmed Insulin ASPART [Novolog Flexpen] 20 unit SQ TIDWM 11/20/15 11/09/18 Insulin Glargine,Hum.rec.anlog 42 unit SQ QAM 11/20/15 11/09/18 [Lantus Solostar] Insulin Glargine,Hum.rec.anlog 76 unit SQ HS 11/20/15 11/09/18 [Lantus Solostar] Niacin 500 mg PO QAM 11/20/15 11/09/18 glipiZIDE [Glipizide] 10 mg PO BID 11/20/15 11/09/18 Ascorbate Calcium [Vitamin C] 1,000 mg PO QAM 11/09/18 11/09/18 Aspirin [Adult Aspirin Regimen] 81 mg PO QAM 11/09/18 11/09/18 Calcium Carbonate/Vitamin D3 1 tab PO BID 11/09/18 11/09/18 [Calcium 600 + Vit D Tablet] Cholecalciferol (Vitamin D3) 2,000 unit PO QAM 11/09/18 11/09/18 [Vitamin D3] Cinnamon Bark [Cinnamon] 1,000 mg PO BID 11/09/18 11/09/18 Cyanocobalamin (Vitamin B-12) 1,000 mcg PO QAM 11/09/18 11/09/18 [Vitamin B-12] Lisinopril [Zestril] 10 mg PO HS 11/09/18 11/09/18 Lisinopril/Hydrochlorothiazide 1 tab PO QAM 11/09/18 11/09/18 [Zestoretic 20-25 mg Tablet] Multivitamin [One Daily Essential] 1 tab PO QAM 11/09/18 11/09/18 [place]-3/Dha/Epa/Fish Oil [Fish Oil 1 cap PO DAILY 11/09/18 11/09/18 1,000 mg Softgel] Rosuvastatin Calcium 20 mg PO QAM 11/09/18 11/09/18 Saline Nasal [place] [[place] Nasal 2 spray NS DAILY PRN 11/09/18 11/09/18 [place]] Vitamin E 400 unit PO QAM 11/09/18 11/09/18 Previous Rx's Medication Instructions Recorded Metoprolol [Lopressor] 12.5 mg PO BID #60 tablet 11/10/18 Nitroglycerin 0.4 mg SL Q5MPRN PRN #20 tab.subl 11/10/18 Ticagrelor [Brilinta] 90 mg PO BID #60 tablet 11/10/18 Allergies Allergy/AdvReac Type Severity Reaction Status Date / Time ezetimibe [From Zetia] Allergy Mild Muscle Pain Verified 11/13/18 17:37 liraglutide [From Victoza] Allergy Mild Abdominal Verified 11/13/18 17:37 Pain Cxqgllp-Eez-Yze Reductase Allergy Mild Muscle Pain Verified 11/13/18 17:37 Inhibitor [Statins] alcohol AdvReac Mild Hypertensio Verified 11/13/18 17:37 n hydrocodone [From Vicodin] AdvReac Mild Vomiting Verified 11/13/18 17:37 Constitutional: Denies: fever, chills, weakness Eyes: Denies: eye pain, eye discharge, vision change ENT ED: Denies: ear pain, congestion, dysphagia Cardiovascular: Denies: chest pain, palpitations, dyspnea on exertion Respiratory: Denies: cough, dyspnea, wheezes Gastrointestinal: Reports: abdominal pain (left lower quadrant), nausea, vomiting Genitourinary: Denies: urgency, dysuria, frequency Musculoskeletal: Denies: back pain, neck pain Integumentary: Denies: rash, abrasion, lesions Neurological: Denies: headache, weakness, numbness Past Medical History - Past Medical History Medical history: Reports: diabetes, hypertension, liver disease, renal disease Surgical history: Reports: cholecystectomy Psychiatric history: Reports: no psych history AIR CHIPPER history: Reports: no AIR CHIPPER history - Social History Smoking Status: Never smoker Smokeless Tobacco Status: No Alcohol use: Reports: none Drug use: Reports: none Course Course Narrative: This patient was signed out to me at shift change from Dr. Acosta and Dr. Judd. Please refer to their notes for complete details of the history and physical examination. At shift change patient is awaiting a pelvic ultrasound to evaluate a large left adnexal cyst which was found on CT of the abdomen and pelvis. Patient presented with acute onset of left lower abdominal pain at 12:45 PM. The ultrasound showed normal flow to both ovaries but a large 5.1 cm probable hemorrhagic cyst on the left ovary. Due to the patient's age and size of the cyst surgical evaluation is recommended. [employer] industrial/organizational psychologist, Dr. Ball, was consulted and case discussed with him. He recommended obtaining a CA 125, CEA, and CA 199 and they will follow-up the patient in the office. When I went to discuss the plan with patient and patient states her pain is coming back and getting very severe. She is oriented to does the fentanyl which controlled the pain temporarily. Patient has been did not feel comfortable going home because of her recent cardiac stent placement and she is on Brilinta. I will consult the hospitalist regarding admission for intractable pain. - Consultations Consultation #1: Discussed the ultrasound findings with the marble mason, Dr. Ball, and he recommended obtaining tumor marker labs and they will follow up with the patient in the office. Time: 02:15 Consultation #2: The hospitalist, Dr. Barroso, was consulted and accepted admission of the patient. Time: 02:39 Vital Signs Temperature 98.4 F 11/13/18 17:37 Pulse Rate 75 11/13/18 17:37 Respiratory Rate 18 11/13/18 17:37 Blood Pressure 166/74 11/13/18 17:37 O2 Sat by Pulse Oximetry 97 11/13/18 17:37 Temperature 98.4 F 11/13/18 17:37 Pulse Rate 75 11/13/18 17:37 Respiratory Rate 18 11/13/18 17:37 Blood Pressure 166/74 11/13/18 17:37 O2 Sat by Pulse Oximetry 97 11/13/18 17:37 Oxygen Delivery Oxygen Delivery Room Air Medical Decision Making - Lab Data Lab results reviewed: Yes I reviewed the patient's lab results. Result diagrams: 11/13/18 18:11 11/13/18 18:11 Lab Results 11/13/18 11/13/18 Range/Units 18:11 18:11 WBC 8.7 (4.3-11.1) K/mcL RBC 3.91 (3.82-4.97) M/mcL Hgb 12.9 (11.5-15.4) g/dL Hct 36.5 (35.3-44.9) % MCV 93.4 (83.0-100.0) fL MCH 33.0 (28.0-33.3) pg MCHC 35.3 (31.6-35.5) g/dL RDW 12.5 (11.5-14.5) % Plt Count 222 (140-400) K/mcL MPV 11.2 (9.4-12.4) fL Immature Gran % 0.2 (0-4) % Seg Neutrophils % 53.7 % Lymphocytes % 32.9 % Monocytes % 10.4 % Eosinophils % 2.3 % Basophils % 0.5 % Neutrophils # 4.7 (1.6-8.9) K/mcL Lymphocytes # 2.9 (0.6-4.6) K/mcL Monocytes # 0.9 (0.0-1.3) K/mcL Eosinophils # 0.2 (0.0-0.6) K/mcL Basophils # 0.0 (0.0-0.2) K/mcL Sodium 135 L (136-145) mEq/L Potassium 3.8 (3.5-5.1) mEq/L Chloride 101 (98-107) mEq/L Carbon Dioxide 24 (23-29) mEq/L BUN 18 (8-23) mg/dL Creatinine 0.79 (0.60-1.20) mg/dL Est GFR ( Amer) > 60 (> 60) Est GFR (Non-Af Amer) > 60 (> 60) BUN/Creatinine Ratio 23 (6-26) Glucose 150 H (70-105) mg/dL Calculated Osmolality 285 (280-300) Calcium 10.2 (8.6-10.3) mg/dL - Radiology Data Radiology results reviewed: Yes I reviewed the patient's radiology results. Abdomen/Pelvis CT 11/13/18 20:16 IMPRESSION: 4.4 cm left adnexal cyst. Prompt pelvic ultrasound is recommended for further evaluation. Moderate amount of stool within the colon. Correlate with clinical evidence of constipation. Small focal areas of subcutaneous fat stranding within the anterior abdominal wall, likely related to medication administration, but correlate with any clinical evidence of cellulitis. Mild diffuse hepatic steatosis. Mild mural thickening of the lower esophagus. Correlate with any clinical evidence of esophagitis. RECOMMENDATIONS: 4.4 cm probably benign ovarian cyst. Recommend prompt follow-up with pelvic US. Reference: J Am [place] Radiol 2013;10:675-681 D/ / Bryce Browne MD / Bryce Browne MD Interpreting Provider: Bryce Browne MD Abdomen/Pelvis/Transvag US 11/13/18 22:49 IMPRESSION: 1. Normal flow in the ovaries. 2. The left ovarian lesion is most likely a hemorrhagic cyst. Given the size of 5.1 cm and the patient's age surgical evaluation is recommended. D/ / Ziggy Arguello MD / Ziggy Arguello MD Interpreting Provider: Ziggy Arguello MD
[2018-11-14] MEDS ORDERED: 0.9 % Sodium Chloride 500 ML IVC ONE (02:31)
[2018-11-14] MEDS ORDERED: *HR* FentaNYL (PF) 100 MCG/2 ML VIAL IVP ONE (02:33)
[2018-11-14] MEDS ORDERED: Ondansetron 4 MG/2 ML VIAL IVP ONE (02:33)
--- NOTE | 2018-11-14 03:01 | Internal Med History&Physical ---
<Jared Rutherford S - Last Filed: 11/14/18 03:59> Date of Encounter: 11/14/18 Time of Encounter: 03:59 Internal Medicine - H&P: HPI Chief complaint: abdomainl pain Admitted From: Home Plans for Post Hospital Care: Home History of present illness: Ms. Johnson is a 72 year old female with PMH of diabetes, hypertension, liver disease, and renal disease. She is presenting with the chief complaint of LLQ pain that started suddenly yesterday while watching television around 1pm. She states that she has never had this pain before and it was a sharp, 10/10 pain. She had gone to her PCP Dr. Norwood yesterday and was scheduled for a CT of her abd/pelvis but became so uncomfortable that she came to the hospital. She states that she has no chest pain, SOB, fevers/chills or weight loss. She does have a hx of gynecological cancer and had a LOOP procedure for her cervix. She is UTD on other age appropriate cancer related screenings. She does have some bloating but denies early satiety. She denies family hx of gynecological cancer. In the ER she was found to have CT scan with an ovarian cyst. TVUS did show lik edu hemorrhagic cyst. OBGYN consulted from the ER. She will be admitted for further pain control. Past Med Surg Social Fam HX - Past Medical History Medical history: diabetes, hypertension, liver disease, renal disease Additional medical history: OBESITY Psychiatric history: no psych history - Past Surgical History Surgical History: cholecystectomy Additional surgical history: left ankle surgery, joint replacement in Right toe - Social History Smoking Status: Never smoker Smokeless Tobacco Status: No Alcohol use: none Drug use: none - Family History Mother Living Status: Hx Family Cardiac Disorders: Yes Hx Family Respiratory Disorders: No Hx Family Cancer: No Hx Family GI Disorders: No Hx Family Endocrine Disorder: Yes Father Living Status: Hx Family Cardiac Disorders: Yes Internal Medicine - H&P: Meds RX: Insulin ASPART [Novolog Flexpen] 20 unit SQ TIDWM 11/20/15 [History] RX: Insulin Glargine,Hum.rec.anlog [Lantus Solostar] 42 unit SQ QAM 11/20/15 [History] RX: Insulin Glargine,Hum.rec.anlog [Lantus Solostar] 76 unit SQ HS 11/20/15 [History] RX: Niacin 500 mg PO QAM 11/20/15 [History] RX: glipiZIDE [Glipizide] 10 mg PO BID 11/20/15 [History] RX: Ascorbate Calcium [Vitamin C] 1,000 mg PO QAM 11/09/18 [History] RX: Aspirin [Adult Aspirin Regimen] 81 mg PO QAM 11/09/18 [History] RX: Calcium Carbonate/Vitamin D3 [Calcium 600 + Vit D Tablet] 1 tab PO BID 11/09/18 [History] RX: Cholecalciferol (Vitamin D3) [Vitamin D3] 2,000 unit PO QAM 11/09/18 [History] RX: Cinnamon Bark [Cinnamon] 1,000 mg PO BID 11/09/18 [History] RX: Cyanocobalamin (Vitamin B-12) [Vitamin B-12] 1,000 mcg PO QAM 11/09/18 [History] RX: Lisinopril [Zestril] 10 mg PO HS 11/09/18 [History] RX: Lisinopril/Hydrochlorothiazide [Zestoretic 20-25 mg Tablet] 1 tab PO QAM 11/09/18 [History] RX: Multivitamin [One Daily Essential] 1 tab PO QAM 11/09/18 [History] RX: [place]-3/Dha/Epa/Fish Oil [Fish Oil 1,000 mg Softgel] 1 cap PO DAILY 11/09/18 [History] RX: Rosuvastatin Calcium 20 mg PO QAM 11/09/18 [History] RX: Saline Nasal [place] [[place] Nasal [place]] 2 spray NS DAILY PRN 11/09/18 [History] RX: Vitamin E 400 unit PO QAM 11/09/18 [History] RX: Metoprolol [Lopressor] 12.5 mg PO BID #60 tablet 11/10/18 [Rx] RX: Nitroglycerin 0.4 mg SL Q5MPRN PRN #20 tab.subl 11/10/18 [Rx] RX: Ticagrelor [Brilinta] 90 mg PO BID #60 tablet 11/10/18 [Rx] Allergy/AdvReac Type Severity Reaction Status Date / Time ezetimibe [From Zetia] Allergy Mild Muscle Pain Verified 11/13/18 17:37 liraglutide [From Victoza] Allergy Mild Abdominal Verified 11/13/18 17:37 Pain Qxozkcd-Miq-Dgn Reductase Allergy Mild Muscle Pain Verified 11/13/18 17:37 Inhibitor [Statins] alcohol AdvReac Mild Hypertensio Verified 11/13/18 17:37 n hydrocodone [From Vicodin] AdvReac Mild Vomiting Verified 11/13/18 17:37 All Systems PM: A 10-system review of systems was performed and is negative for pertinent findings except as documented above in the HPI. - Constitutional Constitutional: weakness, no chills, no fever(s), no night sweats, no weight gain - EENT Eyes: no blurry vision, no change in vision Ears: no tinnitus Nose, mouth and throat: no bleeding gums, no epistaxis - Cardiovascular Cardiovascular ROS IM: no chest pain, no dyspnea, no dyspnea on exertion - Respiratory Respiratory: no cough, no dyspnea, no dyspnea on exertion - Gastrointestinal Gastrointestinal: abdominal pain, bloating, nausea, vomiting, no diarrhea - Genitourinary Genitourinary: no abnormal vaginal bleeding, no dysuria, no hematuria - Musculoskeletal Musculoskeletal ROS IM: no numbness, no tingling - Integumentary Integumentary IM: no erythema, no rash - Neurological Neurological ROS: no numbness, no tingling, no weakness - Psychiatric Psychiatric: memory loss - Endocrine Endocrine IM: fatigue - Hematologic/Lymphatic Hematologic/Lymphatic: no easy bleeding, no easy bruising - Constitutional Vitals: Temp Pulse Resp BP Pulse Ox 98.4 F 75 18 166/74 97 11/13/18 17:37 11/13/18 17:37 11/13/18 17:37 11/13/18 17:37 11/13/18 17:37 Exam: general - aox3, nad, comfortably lying in bed heent - MMM, NCAT, no scleral icterus neck -supple, no jvd cardio - rrr, s1s2 cta no mrg lungs - ctab no wheeze/rhonchi/rales, not in respiratory distress abd - mild distention, denies TTP, no rebound or guarding, no peritoneal signs extremities - moves all extremities equally, no peripheral pitting edema, strength 5/5 neuro - no FND, sensation intact, CN2-12 intact psych - appropriate mood/affect skin - dry, intact, warm Internal Med - H&P Results - Labs CBC & Chem 7: 11/13/18 18:11 11/13/18 18:11 Labs: Short CBC 11/13/18 Range/Units 18:11 WBC 8.7 (4.3-11.1) K/mcL Hgb 12.9 (11.5-15.4) g/dL Hct 36.5 (35.3-44.9) % Plt Count 222 (140-400) K/mcL Neutrophils # 4.7 (1.6-8.9) K/mcL BMP 11/13/18 18:11 Sodium 135 L Potassium 3.8 Chloride 101 Carbon Dioxide 24 BUN 18 Creatinine 0.79 Glucose 150 H Calcium 10.2 - Impressions ITS Impressions Abdomen/Pelvis CT 11/13/18 20:16 IMPRESSION: 4.4 cm left adnexal cyst. Prompt pelvic ultrasound is recommended for further evaluation. Moderate amount of stool within the colon. Correlate with clinical evidence of constipation. Small focal areas of subcutaneous fat stranding within the anterior abdominal wall, likely related to medication administration, but correlate with any clinical evidence of cellulitis. Mild diffuse hepatic steatosis. Mild mural thickening of the lower esophagus. Correlate with any clinical evidence of esophagitis. RECOMMENDATIONS: 4.4 cm probably benign ovarian cyst. Recommend prompt follow-up with pelvic US. Reference: J Am [place] Radiol 2013;10:675-681 D/ / Bryce Browne MD / Bryce Browne MD Interpreting Provider: Bryce Browne MD Abdomen/Pelvis/Transvag US 11/13/18 22:49 IMPRESSION: 1. Normal flow in the ovaries. 2. The left ovarian lesion is most likely a hemorrhagic cyst. Given the size of 5.1 cm and the patient's age surgical evaluation is recommended. D/ / Ziggy Arguello MD / Ziggy Arguello MD Interpreting Provider: Ziggy Arguello MD - Assessment and Plan (1) Hemorrhagic cyst of left ovary Current Visit: Yes Status: Acute Assessment and plan: Pt with sudden onset LLQ pain yesterday CT abdomen and pelvis from admission - 4.4 cm left adnexal cyst - recommendation for promt TVUS TVUS from admission Normal flow in the ovaries. The left ovarian lesion is most likely a hemorrhagic cyst. Given the size of 5.1 cm and the patient's age surgical evaluation is recommended. Differential includes hemorrhagic ovarian cyst after recent start of an tiplatelets agents after recent LHC vs ovarian malignancy - pt does have a past hx of gynecoligcal cancer - denies any weight loss/night sweats but does have bloating/decreased appetite - denies family hx of gynecological malignancy - denies vaginal bleeding Plan - OBGYN consulted in the ER - pain control with acetaminophen and oxycodone prn - hold ASA but continue brillenta - zofran prn nausea - CA 125 level pending - CEA level pending - UA pending - FEN: cardiac/ada diet - dvt prophylaxis: scd - dispo: OBGYN evaluation, pain control (2) Nausea and vomiting Current Visit: Yes Status: Acute Assessment and plan: prn zofran Qualifiers: Vomiting type: unspecified Vomiting Intractability: non-intractable Qualified Code(s): R11.2 - Nausea with vomiting, unspecified (3) HTN (hypertension), benign Current Visit: No Status: Chronic Assessment and plan: chronic, con't home meds when reconciled. (4) DM2 (diabetes mellitus, type 2) Current Visit: No Status: Chronic Assessment and plan: T2DM, chronic. Hold home rx. LDSS. Accuchecks. ADA diet. Qualifiers: Diabetes mellitus correction insulin use: with commercial kitchen service technician use Diabetes mellitus complication status: without complication Qualified Code(s): E11.9 - Type 2 diabetes mellitus without complications; Z79.4 - video engineer (current) use of insulin (5) DVT prophylaxis Current Visit: No Status: Acute Assessment and plan: scd (6) Intractable abdominal pain Current Visit: Yes Status: Acute Assessment and plan: Pain control as above. (7) Obesity Current Visit: Yes Status: Acute Assessment and plan: chronic, BMI 36.8 Qualifiers: Obesity type: due to excess calories Obesity classification: adult class 2 (BMI 35 - 39.9) Serious obesity comorbidity presence: without serious comorbidity Body mass index: BMI 36.0-36.9 Qualified Code(s): E66.09 - Other obesity due to excess calories; Z68.36 - Body mass index (BMI) 36.0-36.9, adult - Time Spent With Patient Total time spent is greater than 50% in coordination of care (as documented) at patient's floor/unit and/or counseling patient: 25 - 35 minutes <Octaviano Barrosolea - Last Filed: 11/14/18 04:43> Date of Encounter: 11/14/18 Internal Medicine - H&P: HPI History of present illness: Ms. Johnson is a 72 year old female All Systems PM: A 10-system review of systems was performed and is negative for pertinent findings except as documented above in the HPI. - Constitutional Vitals: Temp Pulse Resp BP Pulse Ox 98.0 F 70 16 135/66 96 11/14/18 04:30 11/14/18 04:30 11/14/18 04:30 11/14/18 04:30 11/14/18 04:30 Internal Med - H&P Results - Labs CBC & Chem 7: 11/13/18 18:11 11/13/18 18:11 Labs: Short CBC 11/13/18 Range/Units 18:11 WBC 8.7 (4.3-11.1) K/mcL Hgb 12.9 (11.5-15.4) g/dL Hct 36.5 (35.3-44.9) % Plt Count 222 (140-400) K/mcL Neutrophils # 4.7 (1.6-8.9) K/mcL BMP 11/13/18 18:11 Sodium 135 L Potassium 3.8 Chloride 101 Carbon Dioxide 24 BUN 18 Creatinine 0.79 Glucose 150 H Calcium 10.2 - Impressions ITS Impressions Abdomen/Pelvis CT 11/13/18 20:16 IMPRESSION: 4.4 cm left adnexal cyst. Prompt pelvic ultrasound is recommended for further evaluation. Moderate amount of stool within the colon. Correlate with clinical evidence of constipation. Small focal areas of subcutaneous fat stranding within the anterior abdominal wall, likely related to medication administration, but correlate with any clinical evidence of cellulitis. Mild diffuse hepatic steatosis. Mild mural thickening of the lower esophagus. Correlate with any clinical evidence of esophagitis. RECOMMENDATIONS: 4.4 cm probably benign ovarian cyst. Recommend prompt follow-up with pelvic US. Reference: J Am [place] Radiol 2013;10:675-681 D/ / Bryce Browne MD / Bryce Browne MD Interpreting Provider: Bryce Browne MD Abdomen/Pelvis/Transvag US 11/13/18 22:49 IMPRESSION: 1. Normal flow in the ovaries. 2. The left ovarian lesion is most likely a hemorrhagic cyst. Given the size of 5.1 cm and the patient's age surgical evaluation is recommended. D/ / Ziggy Arguello MD / Ziggy Arguello MD Interpreting Provider: Ziggy Arguello MD - Time Spent With Patient Total time spent is greater than 50% in coordination of care (as documented) at patient's floor/unit and/or counseling patient: - Attending Attestation I performed a history and physical exam of the patient and discussed management with the resident. I reviewed the resident's note and agree with the documented findings and plan of care. 72 year old woman presenting with acute onset LLQ pain, found on imaging reviewed to have a large cystic lesion of the ovary that may be hemorrhagic however given her age, a malignancy should be excluded. No overt evidence of bleeding and no pelvic free fluid is identified. She is admitted for intractable pain and will be seen by Echo Technician on consult. Favor continuing antiplatelet therapy given the recency of her cardiac cath procedure and stent placement to minimize risk of stenosis as she is not overtly bleeding and she remains stable. VANDA MILLER.
[2018-11-14] MEDS ORDERED: Ondansetron 4 MG/2 ML VIAL IVP PRN (03:44)
[2018-11-14] MEDS ORDERED: Naloxone 0.4 MG/ML INJ IVP PRN (03:44)
[2018-11-14] MEDS ORDERED: *HR* Dextrose 50 % in Water (Syg) 50 ML SYRINGE IVP PRN (03:46)
[2018-11-14] MEDS ORDERED: Dextrose Gel 15 GM/37.5 ML TUBE PO PRN ×2 (03:46)
[2018-11-14] MEDS ORDERED: D5% in Water 1,000 ML IVC PRN (03:46)
[2018-11-14] MEDS ORDERED: Acetaminophen 325 MG TABLET PO PRN (03:58)
[2018-11-14 04:21] LABS: Carcinoembryonic Antigen 2.1 ng/mL (Less than 5.0)
[2018-11-14] MEDS ORDERED: Nitroglycerin 0.4 MG TAB.SUBL SL PRN (04:38)
[2018-11-14] MEDS: OXYCODONE Oral CONC 10 MG/0.5 ML ORAL.SYG SL PRN ×2 (05:36→11:34)
[2018-11-14] MEDS ORDERED: *HR* Heparin 5,000 UNIT/ML VIAL SQ SCH (06:00)
[2018-11-14] MEDS: Insulin LISPRO 300 UNITS/3 ML VIAL SQ SCH ×3 (08:17→17:14)
[2018-11-14] MEDS: *HR* Ticagrelor 90 MG TABLET PO SCH ×2 (08:17→22:18)
--- NOTE | 2018-11-14 08:49 | Internal Med Progress Note ---
<Isaiah Fernandez - Last Filed: 11/14/18 16:47> Hospitalist Progress Note - Encounter Date of Encounter: 11/14/18 Time of Encounter: 08:49 - Subjective Interval History: This is a 72-year-old female with past medical history significant for diabetes, hypertension, liver disease, renal disease who initially presented complaining o f left lower quadrant pain that started suddenly yesterday afternoon. In the ED, patient was found to have ovarian cyst. A transvaginal ultrasound and further showed the patient had a left-sided hemorrhagic ovarian cyst. Patient seen and examined this morning. She is resting comfortably at bedside accompanied by family members. Notes that her pain is currently under control. She was able to tolerate a diet and sleep through the night. She denies any chest pain, difficulty breathing, abdominal pain, nausea, vomiting. Vitals are hemodynamically stable. - Exam Vitals: Temp Pulse Resp BP Pulse Ox 97.9 F 72 16 117/58 95 11/14/18 07:33 11/14/18 07:33 11/14/18 07:33 11/14/18 07:33 11/14/18 07:33 Exam: GEN: 72-year-old female resting comfortably at bedside. Vitals stable. No acute distress. AAOx3 HEENT: Atraumatic, Normocephalic, PERRLA, EOMI NECK: Supple, no lymphadenopathy, no JVD CARDIAC: RRR, s1 and s2 present, no murmurs, rubs, gallops PULM: CTAB, not in respiratory distress, no wheezes, rales, crackles, rhonchi ABD: Soft, non-tender, non-distended, no guarding or rebound tenderness. Bowel sounds present. Nontender to palpation in the left lower quadrant. EXT: No peripheral edema. No calf tenderness, cyanosis, clubbing NEURO: CN 2-12 grossly intact. No focal neurologic deficits. Follows commands PSYCH: Appropriate mood and affect - Assessment and Plan (1) Hemorrhagic cyst of left ovary Current Visit: Yes Status: Acute Assessment and Plan: This is a 72-year-old female with past medical history significant for diabetes, hypertension, liver disease, renal disease who initially presented complaining of left lower quadrant pain that started suddenly yesterday afternoon. In the ED, patient was found to have ovarian cyst. A transvaginal ultrasound and further showed the patient had a left-sided hemorrhagic ovarian cyst. 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 She received a stent in the circumflex artery. Patient was started on dual antiplatelet therapy with aspirin and Brilinta. - CT of abdomen and pelvis (11/13/18): 4.4 cm left adnexal cyst - Pelvic ultrasound and 11/13/18): Normal flow to the ovaries. Left ovarian lesion is most likely a hemorrhagic cyst. Recommend surgical evaluation given size of cyst measuring 5.1 cm. - Vitals within normal limits - CBC, BMP benign - CEA = 2.1 (within normal limits) - Ca-125 = 10 (within normal limits) - Urinalysis negative - CT abdomen and pelvis and (11/14/18): Unchanged appearance of left adnexal cyst suggesting hemorrhagic cyst. No other changes noted. - On examination this morning, patient is comfortable in no acute distress. States that her pain is under control. She is eager to know her results, and eager for further discussion with financial agent. PLAN: - Hemorrhagic cyst potentially developed after the start of dual antiplatelet therapy - TRAY PACKER was consulted. Recommendations appreciated - Pain control as needed with Tylenol and oxycodone - Nausea control with Zofran as needed - We will continue with Brilinta, and hold aspirin at this time (2) DM2 (diabetes mellitus, type 2) Current Visit: No Status: Chronic Assessment and Plan: History of diabetes mellitus type 2 on by mouth medications and insulin. PLAN: - We will initiate low-dose sliding scale insulin here - Monitor blood sugars before meals and before bedtime - Diabetic, cardiac diet (3) Coronary artery disease Current Visit: Yes Status: Acute Assessment and Plan: Patient was recently evaluated and discharged for chest pain, and underwent left heart catheterization which revealed moderate coronary artery disease. She rec eived a stent in the circumflex artery. Patient was started on dual antiplatelet therapy with aspirin and Brilinta. - Echo (11/08/18): LVEF = 60%. Mild concentric left ventricular hypertrophy. Mild left ventricular diastolic dysfunction. Right ventricle normal. No Pulmonary hypertension - Patient discharged home on aspirin and Brilinta. - Also sent home with CHARY inhibitor, beta alireza, statin - Denies any chest pain, palpitations, chest discomfort at this time PLAN: - Given hemorrhagic cyst, we will continue with Brilinta and hold aspirin - Otherwise, continue CHARY inhibitor, beta alireza, statin - Monitor for worsening signs and symptoms of chest pain (4) Nausea and vomiting Current Visit: Yes Status: Resolved Assessment and Plan: Resolving PLAN: - Zofran as needed (5) HTN (hypertension), benign Current Visit: No Status: Chronic Assessment and Plan: History of hypertension - BP this a.m. = 117/58 PLAN: - We will continue with home hypertension medications (6) HLD (hyperlipidemia) Current Visit: Yes Status: Acute Assessment and Plan: Chronic PLAN: - Cont Crestor (7) DVT prophylaxis Current Visit: No Status: Acute Assessment and Plan: PLAN: - SCDs DVT Prophylaxis: SCDs - Time Spent with Patient Total time spent is greater than 50% in coordination of care (as documented) at patient's floor/unit and/or counseling patient: less than 15 minutes Plan of Care Discussed with: patient (Patient and Family) Internal Medicine: Result - Labs CBC & Chem 7: 11/13/18 18:11 11/13/18 18:11 Labs: Short CBC 11/13/18 Range/Units 18:11 WBC 8.7 (4.3-11.1) K/mcL Hgb 12.9 (11.5-15.4) g/dL Hct 36.5 (35.3-44.9) % Plt Count 222 (140-400) K/mcL Neutrophils # 4.7 (1.6-8.9) K/mcL BMP 11/13/18 18:11 Sodium 135 L Potassium 3.8 Chloride 101 Carbon Dioxide 24 BUN 18 Creatinine 0.79 Glucose 150 H Calcium 10.2 - Impressions Impressions Abdomen/Pelvis CT 11/13/18 20:16 IMPRESSION: 4.4 cm left adnexal cyst. Prompt pelvic ultrasound is recommended for further evaluation. Moderate amount of stool within the colon. Correlate with clinical evidence of constipation. Small focal areas of subcutaneous fat stranding within the anterior abdominal wall, likely related to medication administration, but correlate with any clinical evidence of cellulitis. Mild diffuse hepatic steatosis. Mild mural thickening of the lower esophagus. Correlate with any clinical evidence of esophagitis. RECOMMENDATIONS: 4.4 cm probably benign ovarian cyst. Recommend prompt follow-up with pelvic US. Reference: J Am [place] Radiol 2013;10:675-681 D/ / Bryce Browne MD / Bryce Browne MD Interpreting Provider: Bryce Browne MD Abdomen/Pelvis/Transvag US 11/13/18 22:49 IMPRESSION: 1. Normal flow in the ovaries. 2. The left ovarian lesion is most likely a hemorrhagic cyst. Given the size of 5.1 cm and the patient's age surgical evaluation is recommended. D/ / Ziggy Arguello MD / Ziggy Arguello MD Interpreting Provider: Ziggy Arguello MD Consult Discharge Plan - Plan Additional Instructions: Please follow-up with me in 1-2 weeks after discharge Referrals: Florin Dunn DO [Primary Care Provider] - <Marco Connor - Last Filed: 11/14/18 18:05> Hospitalist Progress Note - Encounter Date of Encounter: 11/14/18 - Exam Vitals: Temp Pulse Resp BP Pulse Ox 98.3 F 68 16 130/75 96 11/14/18 14:47 11/14/18 14:47 11/14/18 14:47 11/14/18 14:47 11/14/18 14:47 - Time Spent with Patient Total time spent is greater than 50% in coordination of care (as documented) at patient's floor/unit and/or counseling patient: Internal Medicine: Result - Labs CBC & Chem 7: 11/13/18 18:11 11/13/18 18:11 Labs: Short CBC 11/13/18 Range/Units 18:11 WBC 8.7 (4.3-11.1) K/mcL Hgb 12.9 (11.5-15.4) g/dL Hct 36.5 (35.3-44.9) % Plt Count 222 (140-400) K/mcL Neutrophils # 4.7 (1.6-8.9) K/mcL BMP 11/13/18 18:11 Sodium 135 L Potassium 3.8 Chloride 101 Carbon Dioxide 24 BUN 18 Creatinine 0.79 Glucose 150 H Calcium 10.2 Urine 11/14/18 Range/Units 09:45 Urine Color Yellow (Yellow) Urine Clarity Clear (Clear) Urine pH 6.5 (5.0-8.0) pH Units Ur Specific [place] < 1.005 L (1.010-1.025) Urine Protein Negative (Neg-Trace) mg/dL Urine Glucose (UA) Normal (Normal) mg/dL - Impressions Impressions Abdomen/Pelvis CT 11/13/18 20:16 IMPRESSION: 4.4 cm left adnexal cyst. Prompt pelvic ultrasound is recommended for further evaluation. Moderate amount of stool within the colon. Correlate with clinical evidence of constipation. Small focal areas of subcutaneous fat stranding within the anterior abdominal wall, likely related to medication administration, but correlate with any clinical evidence of cellulitis. Mild diffuse hepatic steatosis. Mild mural thickening of the lower esophagus. Correlate with any clinical evidence of esophagitis. RECOMMENDATIONS: 4.4 cm probably benign ovarian cyst. Recommend prompt follow-up with pelvic US. Reference: J Am [place] Radiol 2013;10:[id number] D/ / Bryce Browne MD / Bryce Browne MD Interpreting Provider: Bryce Browne MD Abdomen/Pelvis/Transvag US 11/13/18 22:49 IMPRESSION: 1. Normal flow in the ovaries. 2. The left ovarian lesion is most likely a hemorrhagic cyst. Given the size of 5.1 cm and the patient's age surgical evaluation is recommended. D/ / Ziggy Arguello MD / Ziggy Arguello MD Interpreting Provider: Ziggy Arguello MD Abdomen/Pelvis CT 11/14/18 13:01 IMPRESSION: Unchanged appearance of the left adnexal cyst, the characteristics of which on the ultrasound suggested a hemorrhagic cyst. Again, given the patient's age, surgical evaluation is recommended. Overall, no change is identified to explain the patient's worsening abdominal pain. Redemonstration of mild mural thickening of the lower esophagus, raising the possibility of esophagitis. Mild diffuse hepatic steatosis. D/ / Bryce Browne MD / Bryce Browne MD Interpreting Provider: Bryce Browne MD - Attending Attestation I examined this patient and my medical decision-making was reviewed with the Resident Physician. I agree with the documented findings, disposition and treatment plan as described except to the extent set forth below. <Isaiah Fernandez - Last Filed: 11/14/18 16:47> (2) DM2 (diabetes mellitus, type 2) Qualifiers: Diabetes mellitus long term care administrator insulin use: with [facility] use Diabetes mellitus complication status: without complication Qualified Code(s): E11.9 - Type 2 diabetes mellitus without complications; Z79.4 - senior living (current) use of insulin (3) Coronary artery disease Qualifiers: Coronary Disease-Associated Artery/Lesion type: [place] artery [place] vs. transplanted heart: [place] heart Associated angina: without angina Qualified Code(s): I25.10 - Atherosclerotic heart disease of [place] coronary artery without angina pectoris (4) Nausea and vomiting Qualifiers: Vomiting type: unspecified Vomiting Intractability: non-intractable Qualified Code(s): R11.2 - Nausea with vomiting, unspecified
[2018-11-14 10:00] LABS: Bilirubin,Urine Negative (Negative); Blood,Urine Negative (Negative); Clarity,Urine Clear (Clear); Color,Urine Yellow (Yellow); Glucose,Urine (UA) Normal (Normal); Ketones,Urine Negative (Negative); Leukocyte Esterase,Urine Trace (Negative); Nitrite,Urine Negative (Negative); PH,Urine 6.5 pH Units (5.0-8.0); Protein,Urine Negative (Neg-Trace); Specific Gravity,Urine < 1.005 (1.010-1.025); Urobilinogen,Urine Normal (Normal)
[2018-11-14 10:03] LABS: Bacteria,Urine None Seen per hpf (None-Few); Hyaline Casts,Urine None Seen per lpf (None-Few); RBC,Urine 0-3 per hpf (0-3); Squamous Epithelial Cell,Urine Moderate per lpf (None-Few); WBC,Urine 0-3 per hpf (0-3)
--- NOTE | 2018-11-14 15:07 | OB/GYN Consult Note ---
Date of Encounter: 11/14/18 Time of Encounter: 15:06 Assessment and Plan (1) Abdominal pain Current Visit: Yes Status: Acute Suspect that this is from known 5 cm hemorrhagic left ovarian cyst. Size is stable after 2 CTs and 1 ultrasound. There is no free fluid in the pelvis. 2 out of 3 tumor markers are back and confirm the likelihood that this is a benign process, possibly related to anticoagulation initiated this week after cardiac catheterization and stent placement. Recommend pain control and observation of left ovarian cyst as it appears to be stable. Patient is not a good surgical candidate and surgery would be risky given anticoagulated state necessary after recent cardiac catheterization and stent placement Qualifiers: Abdominal location: left lower quadrant Qualified Code(s): R10.32 - Left lower quadrant pain (2) Coronary artery disease Current Visit: Yes Status: Acute Continue anticoagulation as recommended per primary care/cardiac team Qualifiers: Coronary Disease-Associated Artery/Lesion type: [place] artery [place] vs. transplanted heart: [place] heart Associated angina: without angina Qualified Code(s): I25.10 - Atherosclerotic heart disease of [place] coronary artery without angina pectoris (3) Hemorrhagic cyst of left ovary Current Visit: Yes Status: Acute Follow-up ultrasound in the office in 6-8 weeks. CEA and CA-125 both in the normal range consistent with ultrasound findings suggesting a benign process. CA 199 still pending. I discussed findings with patient's as per her request, questions answered and follow-up plan reviewed. I also discussed my findings and plan of care with the hospitalist team along with follow-up recommended. (4) Obesity Current Visit: Yes Status: Acute Diet and weight loss as per primary care/cardiac team Qualifiers: Obesity type: due to excess calories Obesity classification: adult class 2 (BMI 35 - 39.9) Serious obesity comorbidity presence: without serious comorbidity Body mass index: BMI 36.0-36.9 Qualified Code(s): E66.09 - Other obesity due to excess calories; Z68.36 - Body mass index (BMI) 36.0-36.9, adult (5) Abnormal ultrasound of endometrium Current Visit: Yes Status: Acute Endometrium appears thickened on ultrasound at 12 mm. Normal will be 4 mm or less for a postmenopausal woman. Follow-up ultrasound in the RAFTER CUTTING MACHINE OPERATOR office for further evaluation with 3D imaging. Endometrial biopsy may be indicated. Anticoagulation may increase the risk for postmenopausal bleeding without any other etiology. Obesity increases the risk for endometrial hyperplasia and pos sibly endometrial carcinoma. Endometrial biopsy may help evaluate this and can be done in the office. If not contraindicated, Megace 40 mg daily 12-24 hours orally, may be helpful to stabilize the endometrium and prevent bleeding. History of Present Illness Consult date: 11/14/18 Requesting physician: Hakeem Kapadia (ED doc for admitting hospitalist) Reason for consult: pelvic pain, ovarian cyst Chief complaint: Left lower quadrant pain History of present illness: The patient is a 72-year-old who is postmenopausal since age of 50 admitted for left lower quadrant pain with a left ovarian cyst noted on CT scan and confirmed to be 51 mm and the left ovary on ultrasound. The ultrasound also reported a small, normal-appearing menopausal uterus with an endometrium measuring 12 mm which would be considered thickened by postmenopausal standards, and a hemorrhagic appearing left ovarian cyst measuring 51 mm in the largest diameter. No free fluid noted in the pelvis. The pain is localized in the left lower quadrant for about 24 hours with the patient reporting earlier today that it seems like it is radiating to the right side in the lower abdomen. The patient has received routine gynecologic care with a history of a LEEP procedure in 1994 with normal follow-up Pap smears since. Her most recent Pap smear was in 2014 and was negative. The patient is well known to me as she is my private patient who I see regularly for RAFTER CUTTING MACHINE OPERATOR care in the office. She also has a RAFTER CUTTING MACHINE OPERATOR history significant for vulvar intraepithelial neoplasia (KACI) grade 1, which has remained stable. The patient has multiple medical problems including obesity, type 2 diabetes (last hemoglobin A1c 10/2018 @ 7.7), chronic kidney disease, and chronic hypertension. She also reports some bilateral hearing loss, worse on the left than the right. Earlier this week she was admitted for chest pain and underwent a cardiac catheterization with stent placement. She has been on anticoagulation since. She reports no vaginal bleeding or abnormal vaginal discharge. She reports no change in bowel function and has had bowel movements yesterday and today. She denies any rectal bleeding or tarry stools Past Med Surg Social Fam HX - Past Medical History Source: patient, old records reviewed, obtained from family Medical history: arthritis, diabetes, hypertension, liver disease, myocardial infarction, renal disease, other Additional medical history: RENAL DIS., Precancerous lesions of the cervix and vulva Psychiatric history: anxiety, depression - Past Surgical History Surgical History: angioplasty/stent, cholecystectomy Additional surgical history: left ankle surgery, joint replacement in Right toe, LEEP, vulvar laser, colonoscopy - Social History Smoking Status: Never smoker Smokeless Tobacco Status: No Alcohol use: none Drug use: none - Family History Mother Living Status: Hx Family Cardiac Disorders: Yes Hx Family Respiratory Disorders: No Hx Family Cancer: No Hx Family GI Disorders: No Hx Family Endocrine Disorder: Yes Father Living Status: Hx Family Cardiac Disorders: Yes Medications and Allergies Insulin ASPART [Novolog Flexpen] 20 unit SQ TIDWM 11/20/15 [History] Insulin Glargine,Hum.rec.anlog [Lantus Solostar] 42 unit SQ QAM 11/20/15 [History] Insulin Glargine,Hum.rec.anlog [Lantus Solostar] 76 unit SQ HS 11/20/15 [History ] Niacin 500 mg PO QAM 11/20/15 [History] glipiZIDE [Glipizide] 10 mg PO BID 11/20/15 [History] Ascorbate Calcium [Vitamin C] 1,000 mg PO QAM 11/09/18 [History] Aspirin [Adult Aspirin Regimen] 81 mg PO QAM 11/09/18 [History] Calcium Carbonate/Vitamin D3 [Calcium 600 + Vit D Tablet] 1 tab PO BID 11/09/18 [History] Cholecalciferol (Vitamin D3) [Vitamin D3] 2,000 unit PO QAM 11/09/18 [History] Cinnamon Bark [Cinnamon] 1,000 mg PO BID 11/09/18 [History] Cyanocobalamin (Vitamin B-12) [Vitamin B-12] 1,000 mcg PO QAM 11/09/18 [History] Lisinopril [Zestril] 10 mg PO HS 11/09/18 [History] Lisinopril/Hydrochlorothiazide [Zestoretic 20-25 mg Tablet] 1 tab PO QAM 11/09/18 [History] Multivitamin [One Daily Essential] 1 tab PO QAM 11/09/18 [History] [place]-3/Dha/Epa/Fish Oil [Fish Oil 1,000 mg Softgel] 1 cap PO DAILY 11/09/18 [History] Rosuvastatin Calcium 20 mg PO QAM 11/09/18 [History] Saline Nasal [place] [[place] Nasal [place]] 2 spray NS DAILY PRN 11/09/18 [History] Vitamin E 400 unit PO QAM 11/09/18 [History] Metoprolol [Lopressor] 12.5 mg PO BID #60 tablet 11/10/18 [Rx] Nitroglycerin 0.4 mg SL Q5MPRN PRN #20 tab.subl 11/10/18 [Rx] Ticagrelor [Brilinta] 90 mg PO BID #60 tablet 11/10/18 [Rx] Allergy/AdvReac Type Severity Reaction Status Date / Time ezetimibe [From Zetia] Allergy Mild Muscle Pain Verified 11/13/18 17:37 liraglutide [From Victoza] Allergy Mild Abdominal Verified 11/13/18 17:37 Pain Bybpctr-Qwh-Ffg Reductase Allergy Mild Muscle Pain Verified 11/13/18 17:37 Inhibitor [Statins] alcohol AdvReac Mild Hypertensio Verified 11/13/18 17:37 n hydrocodone [From Vicodin] AdvReac Mild Vomiting Verified 11/13/18 17:37 Review of Systems All Systems: reviewed and no additional remarkable complaints except as stated Constitutional: weight loss Eyes: bilateral: blurred vision (patient denies), diplopia (patient denies) Nose, mouth and throat: no dizziness, no headache(s) Cardiovascular: no chest pain, no palpitations Respiratory: no cough, no dyspnea Gastrointestinal: as per HPI Genitourinary Female: as per HPI Menstruation: post menopausal Musculoskeletal: arthralgias, back pain Neurological: abnormal hearing, memory loss Psychiatric: no depression, no difficulty concentrating Endocrine: as per HPI Hematologic/Lymphatic: no easy bruising, no lymphadenopathy Exam - Vital Signs Vital signs: Initial Vital Signs Temp Pulse Resp BP Pulse Ox 98.4 F 75 18 166/74 97 11/13/18 17:37 11/13/18 17:37 11/13/18 17:37 11/13/18 17:37 11/13/18 17:37 - Constitutional Constitutional: well developed, well nourished, no acute distress, obese - HEENT HEENT: Normocephaly, Mucus Membranes Moist - Neck Neck exam: supple - Lungs Respiratory exam: CTAB - Cardiovascular Cardiovascular exam: RRR - Abdomen Abdomen: Present: bowel sounds normal. Absent: diffuse tenderness (But mild tenderness in the left lower quadrant without rebound or guarding), guarding noted, mass - Extremities Extremities exam: normal inspection, warm Deep Tendon Reflex Grade: 2+ Normal - Comments Comments: Pelvic exam deferred per patient request. I personally reviewed PACS for both CT scan on 11/14 and ultrasound performed on 11/13. Results Result Diagrams: 11/13/18 18:11 11/13/18 18:11 Abnormal lab results Sodium 135 mEq/L (136-145) L 11/13/18 18:11 Glucose 150 mg/dL (70-105) H 11/13/18 18:11 Ur Specific [place] < 1.005 (1.010-1.025) L 11/14/18 09:45 Ur Leukocyte Esterase Trace (Negative) H 11/14/18 09:45 Ur Squamous Epith Cells Moderate per lpf (None-Few) H 11/14/18 09:45 Ur Culture Indicated? YES (NO) A 11/14/18 09:45 All other labs normal. Consult Discharge Plan - Plan Additional Instructions: Please follow-up with me in 1-2 weeks after discharge Referrals: Florin Dunn DO [Primary Care Provider] -
[2018-11-14] MEDS ORDERED: Insulin LISPRO 300 UNITS/3 ML VIAL SQ SCH (21:00)
[2018-11-15 06:23] LABS: Basophils % 0.3 %; Eosinophils # 0.2 K/mcL (0.0-0.6); Eosinophils % 2.1 %; Hematocrit 37.9 % (35.3-44.9); Hemoglobin 12.8 g/dL (11.5-15.4); Immature Granulocytes % 0.3 % (0-4); Lymphocytes # 2.3 K/mcL (0.6-4.6); Lymphocytes % 25.7 %; Mean Corpuscular HGB Conc 33.8 g/dL (31.6-35.5); Mean Corpuscular Hemoglobin 32.7 pg (28.0-33.3); Mean Corpuscular Volume 96.7 fL (83.0-100.0); Mean Platelet Volume 11.1 fL (9.4-12.4); Monocytes # 1.1 K/mcL (0.0-1.3); Monocytes % 11.8 %; Neutrophils # 5.4 K/mcL (1.6-8.9); Platelet Count 205 K/mcL (140-400); Red Blood Count 3.92 M/mcL (3.82-4.97); Red Cell Distribution Width 12.8 % (11.5-14.5); Segmented Neutrophils % 59.8 %
[2018-11-15 06:46] LABS: BUN/Creatinine Ratio 20 (6-26); Blood Urea Nitrogen 19 mg/dL (8-23); Calcium 9.6 mg/dL (8.6-10.3); Carbon Dioxide 24 mEq/L (23-29); Chloride 101 mEq/L (98-107); Glucose 235 mg/dL (70-105); Osmolality,Calculated 288 (280-300); Potassium 4.1 mEq/L (3.5-5.1); Sodium 134 mEq/L (136-145); eGFR For African Americans > 60 (> 60); eGFR For Non-African Americans 57 (> 60)
[2018-11-15 06:59] VITALS: BP 120/55
--- NOTE | 2018-11-15 07:55 | Discharge Summary ---
<FernandezIsaiah - Last Filed: 11/15/18 10:25> - NOTES TO OUTPATIENT PROVIDER Notes to Outpatient Provider: - Patient plans to follow up with cardiology, gynecology, PCP within this week. - Plan to discharge home continuing aspirin and Brilinta; we will hold off on starting Megace given patient's recent left heart catheterization with stenting. - We will discharge home with stool softener as well Orders not resulted at time of discharge: Pending orders 11/14/18 03:35 Cancer Antigen-GI (CA 19-9) Stat 11/14/18 09:45 Culture,Urine [RM] Stat Date of Encounter: 11/15/18 Time of Encounter: 07:55 - Discharge Diagnosis (1) Hemorrhagic cyst of left ovary Priority: Primary Status: Acute (2) DM2 (diabetes mellitus, type 2) Priority: Secondary Status: Chronic Qualifiers: Diabetes mellitus skilled nursing insulin use: with skilled nursing use Diabetes mellitus complication status: without complication Qualified Code(s): E11.9 - Type 2 diabetes mellitus without complications; Z79.4 - shelter (current) use of insulin (3) Coronary artery disease Priority: Secondary Status: Acute Qualifiers: Coronary Disease-Associated Artery/Lesion type: [place] artery [place] vs. transplanted heart: [place] heart Associated angina: without angina Qualified Code(s): I25.10 - Atherosclerotic heart disease of [place] coronary artery without angina pectoris (4) Nausea and vomiting Priority: Secondary Status: Resolved Qualifiers: Vomiting type: unspecified Vomiting Intractability: non-intractable Qualified Code(s): R11.2 - Nausea with vomiting, unspecified (5) HTN (hypertension), benign Priority: Secondary Status: Chronic (6) HLD (hyperlipidemia) Priority: Secondary Status: Acute Qualifiers: Hyperlipidemia type: unspecified Qualified Code(s): E78.5 - Hyperlipidemia, unspecified (7) DVT prophylaxis Priority: Secondary Status: Acute Hospital course: Ms. Johnson is a 72-year-old female with past medical history significant for diabetes, hypertension, liver disease, renal disease who initially presented complaining of left lower quadrant pain that started suddenly yesterday afternoon. Associated with nausea and vomiting. In the ED, patient was found to have ovarian cyst. A transvaginal ultrasound further showed the patient had a left-sided hemorrhagic ovarian cyst. Patient had recently been evaluated for chest pain and underwent left heart catheterization which had revealed moderate coronary artery disease. She received a stent in the circumflex artery, and had been started on dual antiplatelet therapy with aspirin and Brilinta. Otherwise, vitals and routine blood work were benign. Urinalysis was negative. Cancer markers including CEA, CA125, CA 199 were drawn and were all within normal limits. Nausea and vomiting resolved with administration of Zofran as needed. Pain was controlled with Tylenol and oxycodone. We continued Brilinta given recent stent, but we held aspirin. Patient was evaluated by gynecology. They did note that hemorrhagic cyst has been known and stable after 2 CT scans and an ultrasound. They did not identify any free fluid in the pelvis, but noted that further hemorrhagic cyst is likely secondary to anticoagulation. They recommended pain control and observation, and recommended against any surgical exploration. Plan for follow-up with Dr. Guevara of gynecology later this week, and plan for follow-up ultrasound in 6-8 weeks. Additionally he was noted that patient has thickened endometrium = 12 mm. Plan for follow-up ultrasound with gynecology this week. They did recommend starting Megace to hopefully stabilize endometrium and prevent bleeding. However given patient had recent stent procedure one week ago, is on dual antiplatelets currently, we opted to hold off on starting Megace at this time. May revisit in the future a consultation between cardiology and gynecology. Otherwise plan of care was discussed with patient and her . We will send patient home restarting aspirin and continuing presents up. We will also send home pain control, and will send home stool softener given moderate stool burden was seen on CT scan of the abdomen. Patient is otherwise in no acute distress, vitals are stable, and she is ready for discharge. Discharge discussed with: patient - Time Spent with Patient Total time spent providing and/or coordinating discharge services: Time spent: Less than 30 minutes, D/C greater than 8 hours after Admission - Discharge Medications Prescriptions: New Acetaminophen [Acetaminophen ER] 650 mg PO Q8H 14 Days #42 tablet.er Docusate [Colace] 100 mg PO BID 14 Days #28 capsule Continued Aspirin [Adult Aspirin Regimen] 81 mg PO QAM Ticagrelor [Brilinta] 90 mg PO BID #60 tablet No Action Niacin 500 mg PO QAM glipiZIDE [Glipizide] 10 mg PO BID Insulin Glargine,Hum.rec.anlog [Lantus Solostar] 76 unit SQ HS Insulin Glargine,Hum.rec.anlog [Lantus Solostar] 42 unit SQ QAM Insulin ASPART [Novolog Flexpen] 20 unit SQ TIDWM Ascorbate Calcium [Vitamin C] 1,000 mg PO QAM Calcium Carbonate/Vitamin D3 [Calcium 600 + Vit D Tablet] 1 tab PO BID Cinnamon Bark [Cinnamon] 1,000 mg PO BID Lisinopril [Zestril] 10 mg PO HS Lisinopril/Hydrochlorothiazide [Zestoretic 20-25 mg Tablet] 1 tab PO QAM Multivitamin [One Daily Essential] 1 tab PO QAM [place]-3/Dha/Epa/Fish Oil [Fish Oil 1,000 mg Softgel] 1 cap PO DAILY Rosuvastatin Calcium 20 mg PO QAM Vitamin E 400 unit PO QAM Cholecalciferol (Vitamin D3) [Vitamin D3] 2,000 unit PO QAM Cyanocobalamin (Vitamin B-12) [Vitamin B-12] 1,000 mcg PO QAM Saline Nasal [place] [[place] Nasal [place]] 2 spray NS DAILY PRN PRN Reason: Congestion Metoprolol [Lopressor] 12.5 mg PO BID #60 tablet Nitroglycerin 0.4 mg SL Q5MPRN PRN #20 tab.subl PRN Reason: Chest Pain Home Medications: Insulin ASPART [Novolog Flexpen] 20 unit SQ TIDWM 11/20/15 [History] Insulin Glargine,Hum.rec.anlog [Lantus Solostar] 42 unit SQ QAM 11/20/15 [History] Insulin Glargine,Hum.rec.anlog [Lantus Solostar] 76 unit SQ HS 11/20/15 [History] Niacin 500 mg PO QAM 11/20/15 [History] glipiZIDE [Glipizide] 10 mg PO BID 11/20/15 [History] Ascorbate Calcium [Vitamin C] 1,000 mg PO QAM 11/09/18 [History] Aspirin [Adult Aspirin Regimen] 81 mg PO QAM 11/09/18 [History] Calcium Carbonate/Vitamin D3 [Calcium 600 + Vit D Tablet] 1 tab PO BID 11/09/18 [History] Cholecalciferol (Vitamin D3) [Vitamin D3] 2,000 unit PO QAM 11/09/18 [History] Cinnamon Bark [Cinnamon] 1,000 mg PO BID 11/09/18 [History] Cyanocobalamin (Vitamin B-12) [Vitamin B-12] 1,000 mcg PO QAM 11/09/18 [History] Lisinopril [Zestril] 10 mg PO HS 11/09/18 [History] Lisinopril/Hydrochlorothiazide [Zestoretic 20-25 mg Tablet] 1 tab PO QAM 11/09/18 [History] Multivitamin [One Daily Essential] 1 tab PO QAM 11/09/18 [History] [place]-3/Dha/Epa/Fish Oil [Fish Oil 1,000 mg Softgel] 1 cap PO DAILY 11/09/18 [History] Rosuvastatin Calcium 20 mg PO QAM 11/09/18 [History] Saline Nasal [place] [[place] Nasal [place]] 2 spray NS DAILY PRN 11/09/18 [History] Vitamin E 400 unit PO QAM 11/09/18 [History] Metoprolol [Lopressor] 12.5 mg PO BID #60 tablet 11/10/18 [Rx] Nitroglycerin 0.4 mg SL Q5MPRN PRN #20 tab.subl 11/10/18 [Rx] Ticagrelor [Brilinta] 90 mg PO BID #60 tablet 11/10/18 [Rx] Acetaminophen [Acetaminophen ER] 650 mg PO Q8H 14 Days #42 tablet.er 11/15/18 [Rx] Docusate [Colace] 100 mg PO BID 14 Days #28 capsule 11/15/18 [Rx] Allergies/Adverse Reactions: Allergy/AdvReac Type Severity Reaction Status Date / Time ezetimibe [From Zetia] Allergy Mild Muscle Pain Verified 11/13/18 17:37 liraglutide [From Victoza] Allergy Mild Abdominal Verified 11/13/18 17:37 Pain Eqiwnmr-Adm-Cwl Reductase Allergy Mild Muscle Pain Verified 11/13/18 17:37 Inhibitor [Statins] alcohol AdvReac Mild Hypertensio Verified 11/13/18 17:37 n hydrocodone [From Vicodin] AdvReac Mild Vomiting Verified 11/13/18 17:37 Date of admission: 11/14/18 03:45 Primary care physician: Florin Dunn DO Consults: 11/14/18 02:54 Consult to CARROTING MACHINE OPERATOR [CONS] Stat Consulting Provider: SUCTION WORKER Nathaly Reason for Consult: Hemorrhagic cyst of left ovary Call Completed: Yes Discharging clinician: Isaiah Fernandez Anticipated date of discharge: 11/15/18 - Constitutional Vitals: Temp Pulse Resp BP Pulse Ox 98.3 F 66 16 120/55 95 11/15/18 06:52 11/15/18 06:52 11/15/18 06:52 11/15/18 06:52 11/15/18 06:52 General appearance: Present: cooperative, A&O X 3, pleasant, no acute distress, answers questions appropriately Exam: This is a 72-year-old female who is resting comfortably sitting at bedside eating breakfast this morning. - Head Head exam: Present: atraumatic, normal inspection, normocephalic - Eye Eye exam: Present: EOMI - ENT ENT exam: Present: mucous membranes moist, normal exam - Neck Neck exam general surgery: Present: full ROM, supple - Respiratory Respiratory exam: Present: CTAB. Absent: respiratory distress, rhonchi, wheezes - Cardiovascular Cardiovascular exam: Present: RRR, +S1, +S2. Absent: systolic murmur - GI/Abdominal GI/Abdominal exam: Present: normal bowel sounds, soft, tenderness (Mild tenderness to palpation across the lower abdomen bilaterally. No rebound tenderness, no guarding, no rigidity.). Absent: diminished bowel sounds, diste nded, firm, guarding, rebound, rigid - Neurological Exam Neurological exam: Present: alert, CN II-XII intact, oriented X3, no focal deficits - Psychiatric Psychiatric exam: Present: normal affect, normal mood - Patient Status Disposition: Home, Self-Care Condition: Fair Functional capacity at discharge: independent ambulation Overall status at discharge: patient is progressing back to baseline - Discharge Instructions Instructions: Ovarian Cyst (DC) Follow Up With: Joyce Brown CNP [Partnered Physician] - 11/16/18 10:00 am Chris Auguste CNP [Advanced Practice Nurse] - 11/19/18 7:45 am Ana Guevara MD [Partnered Physician] - (This appointment was web requested for you. Please allow the office a few working days to call you. If you do not hear anything with in 2-3 working days, please call the number provided on this paper. ) Additional Instructions: Follow-up appointments: If there is not an appointment listed below, please call your physician and schedule a follow-up appointment. If you have congestive heart failure and your symptoms return, make an appointment with your physician. Medication List: Carry an up to date list of medications you are taking at all time. We have given you an updated medication list including any new medications that you have been prescribed. Please provide that list to your primary provider Symptoms: If your condition changes or you experience any of the following symptoms, notify your physician immediately: Unusual or worsening pain, fever, persistent nausea and vomiting, bleeding, increase in swelling (especially in your legs), sudden weight gain, extreme dizziness, chest pain, increased drainage or redness from a wound or incision. Go to the emergency department if you experience a problem with breathing. Weights: If you have a history of swelling or shortness of breath, weigh yourself daily and notify your physician if you have a weight gain of two or more pounds in one day or 5 or more pounds in a week. If you experience any of the warning signs for stroke: Sudden numbness or weakness of the face, arm or leg; especially on one side of the body, sudden confusion, trouble speaking or understanding, sudden trouble seeing in one or both eyes, sudden trouble walking, dizziness, loss of balance or coordination, sudden sever headache with no cause; Call 911 or go to the emergency room. Stroke is a medical emergency. Some risk factors for stroke: Age, cigarette smoking, diabetes, excessive alcohol consumption, family history, high blood pressure, overweight, physical inactivity, prior stroke, heart attack, diagnosis of carotid artery stenosis or other artery disease. If you smoke, STOP: Smoking or tobacco use significantly increases your risk of heart and lung disease. Your chance of disease greatly increases if you continue to smoke. For more information, call the [place] tobacco quit line for smoking cessation 5-173-CNZI-NOW ( ) - Diet and Activity Activity: increase activity as tolerated Diet: diabetic diet, low fat, low cholesterol <Marco Connor - Last Filed: 11/15/18 16:37> Date of Encounter: 11/15/18 Hospital course: Ms. Alex is a 72 year old female - Time Spent with Patient Total time spent providing and/or coordinating discharge services: Date of admission: 11/14/18 03:45 Primary care physician: Florin Dunn DO Consults: 11/14/18 02:54 Consult to CARROTING MACHINE OPERATOR [CONS] Stat Consulting Provider: SUCTION WORKER Nathaly Reason for Consult: Hemorrhagic cyst of left ovary Call Completed: Yes - Constitutional Vitals: Temp Pulse Resp BP Pulse Ox 98.3 F 66 16 120/55 95 11/15/18 06:52 11/15/18 06:52 11/15/18 06:52 11/15/18 06:52 11/15/18 06:52 - Attending Attestation I examined this patient and my medical decision-making was reviewed with the Resident Physician. I agree with the documented findings, disposition and treatment plan as described except to the extent set forth below. Patient did have some residual abdominal pain, but overall stable. As noted on Chopper Gun Operator's surgical evaluation, likely abdominal pain based on imaging and history is the left hemorrhagic ovarian cyst. Multiple images shows this is stable. No free fluid in pelvis. Supervisor [employer] to see patient in a week after discharge. I had an extensive discussion with the patient on resuming dual antiplatelet therapy. We discussed the risks and benefits of DAPT given recent stents. She does unde rstand that preventing stent thrombosis with DAPT is important and there is side effects of bleeding. As per Cardiology recommendations, DAPT will be resumed on discharge with patient instructed to follow-up with Cardiology next available appointment.
[2018-11-15] MEDS: Insulin LISPRO 300 UNITS/3 ML VIAL SQ SCH (08:45)
[2018-11-15] MEDS: *HR* Ticagrelor 90 MG TABLET PO SCH (08:46)
== END 2018-11-15 11:35 | disposition home or self-care (01) ==
LOC: 3BNU 17:34 → EMEROOARM 17:34 → SUATTDRO 11-14 03:45 → 3BNU 11-14 04:23
PROVIDERS: ADMIT Internal Medicine; ATTEND Student in an Organized Health Care Education/Training Program